=== PATIENT | female | born 1970 | race Caucasian/White ===

== ENCOUNTER 2017-02-17 05:19 | Inpatient (IN) | payer OTHER ==
[~2017-02-17] VITALS: Ht 172.7 cm; Wt 65.0 kg
[2017-02-17] VITALS (10 sets, daily range): BP systolic 81–110; BP diastolic 47–69; PULSE 58–71; RESP 16–23; TEMP 98.1–99; O2SAT 95–98
[~2017-02-17 05:19] MED LIST: DICL75 PO; KLON2TAB PO; PRED20 PO; SOMA350T PO; VENTAER INH
[2017-02-17] MEDS ORDERED: SODIUM CHLOR 0.9% 1000 ML INJ 1,000 ML IV ONE (05:30)
--- NOTE | 2017-02-17 05:34 | PD ---
HPI Chief Complaint: Abdominal Pain Time Seen by Provider: 05:26 Travel History International Travel<30 days: No Contact w/Intl Traveler<30days: No Traveled to known affect area: No History of Present Illness HPI The patient is a 47 year old female who presents to the [facility] emergency department with a history of abdominal pain in the midepigastric area and right flank pain that she reports as a burning sensation that began at approximately 11 AM yesterday. The patient reports that the pain comes and goes. She reports that this evening she's had nausea and vomiting 2 associated with it. She denies having any diarrhea. The patient reports that many years ago she did have a bowel obstruction and had a portion of her bowel removed. The patient's other abdominal surgeries include a hysterectomy, C- section, and appendectomy. The patient has had problems with abdominal pain in the past and been diagnosed with gastritis. She reports that her primary care physician is Dr. Angulo. The patient reports that she had 3 bowel movements yesterday that were reportedly normal. She denies having any blood in her stool or black or tarry stools. The patient denies any known fevers, cough, congestion, neck pain, chest pain, shortness of breath, urinary symptoms, or neurologic symptoms. The patient has a prior history of methamphetamine use. She had a relapse times one use 5 days ago. [facility] Past Medical History Narrative Medical The patient's past medical history is significant for COPD, gastritis, schizophreniacurrently off medications for the last 3 weeks, history of bowel obstruction with partial bowel resection, history of methamphetamine use, cervical cancer, hyperlipidemia, history of hepatitis C. Arthritis: Yes Asthma: Yes Blood Disorders: No Bipolar Disorder: Yes Anxiety: Yes Depression: Yes Cancer: Yes (CERVICAL 1993, "6 tumors in my lungs") Cardiovascular Problems: No High Cholesterol: Yes Chemotherapy: No COPD: Yes Cerebrovascular Accident: No Diminished Hearing: No Endocrine: No Gastrointestinal Disorders: Yes Genitourinary: Yes Headaches: No Hepatitis: Yes (HEPATITIS C) Immune Disorder: No Musculoskeletal: Yes (BULGING DISCS IN BACK) Neurologic: Yes Psychiatric: Yes Reproductive: Yes (CERVICAL CA IN 96, HYSTERECTOMY IN 96) Respiratory: Yes (copd) Migraines: No Radiation Therapy: No Schizophrenia: Yes Seizures: Yes (CHILD) Ulcer: Yes ?: Not Menopausal: Yes Past Surgical History Narrative Surgical The patient's past surgical history is significant for a hysterectomy, appendectomy, lumpectomy, abdominal surgery related to bowel obstruction. Abdominal Surgery: Yes (ABDOMINAL ADHESION REMOVAL 1994, 1995) AICD: No Appendectomy: Yes (1994) Arteriovenous Shunt: No Body Medical Devices: STOMACH STAPLING Cardiac Surgery: No Ear Surgery: No Endocrine Surgery: No Eye Surgery: No Genitourinary Surgery: No Gynecologic Surgery: Yes (PARTIAL HYSTERECTOMY 94) Hysterectomy: Yes (1994) Insulin Pump: No Joint Replacement: No Neurologic Surgery: No Oral Surgery: No Pacemaker: No Thoracic Surgery: No Other Surgery: Yes (LUMPECTOMY LEFT BREAST 2007 ) Social History Alcohol Use: No Tobacco Use: Yes (11/24 PPD) Substance Use: Yes (current methamphetamine abuse) Allergies-Medications (Allergen,Severity, Reaction): Coded Allergies: Albuterol (Verified Allergy, Severe, Hives, 02/17/17) Reported Meds & Prescriptions Reported Meds & Active Scripts Active No Active Prescriptions or Reported Medications Review of Systems General / Constitutional: No: Fever Eyes: No: Visual changes HENT: No: Headaches Cardiovascular: No: Chest Pain or Discomfort Respiratory: No: Shortness of Breath Gastrointestinal: Positive: Nausea, Vomiting, Abdominal Pain, No: Diarrhea, Hematemesis, Hematochezia, Constipation, Changes in Bowel Habits, Indigestion, Loss of Appetite Genitourinary: Positive: Flank Pain (right flank pain), No: Urgency, Frequency , Dysuria Musculoskeletal: No: Pain Skin: No Rash Neurologic: No: Weakness Psychiatric: No: Depression Endocrine: No: Polydipsia Hematologic/Lymphatic: No: Easy Bruising Physical Exam Narrative General: The patient is a well-developed well-nourished female, uncomfortable appearing on exam, rolling around in the bed, intermittently moaning/crying. Head and Neck exam: Head is normocephalic atraumatic. Eyes: EOMI, pupils are equal round and reactive to light. Nose: Midline septum with pink mucous membranes Mouth: Dentition unremarkable. Moist mucus membranes. Posterior oropharynx is not erythematous. No tonsillar hypertrophy. Uvula midline. Airway patent. Neck: No palpable lymphadenopathy. No nuchal rigidity. No thyromegaly. Cardiovascular: Regular rate and rhythm without murmurs, gallops, or rubs. Lungs: Clear to auscultation bilaterally. No wheezes, rhonchi, or rales. Abdomen: Soft, with reported tenderness on palpation of the midepigastric area, no other tenderness on palpation of the other quadrants of the abdomen. No guarding, rebound, or rigidity. Negative [place] sign. Normal bowel sounds are audible. Extremities: No clubbing, cyanosis, or edema. 2+ pulses in all 4 extremities. No calf tenderness on palpation. Back: No spinous process tenderness to palpation. Right-sided CVA tenderness on palpation. Neurologic Exam: Grossly nonfocal. Skin Exam: No rash noted. Intact skin that is warm and dry. Data Data Last Documented VS Vital Signs Date Time Temp Pulse Resp B/P Pulse Ox O2 Delivery O2 Flow Rate FiO2 02/17/17 08:00 63 18 90/54 98 Room Air 02/17/17 07:30 98.1 Orders Electrocardiogram (02/17/17 05:27) Complete Blood Count With Diff (02/17/17 05:27) Comprehensive Metabolic Panel (02/17/17 05:27) C-Reactive Protein (Crp) (02/17/17 05:27) Lipase (02/17/17 05:27) Urinalysis - C+S If Indicated (02/17/17 05:27) Beta Hcg (Quant/Titer) (02/17/17 05:27) Magnesium (Mg) (02/17/17 05:27) Chest, Single Ap (02/17/17 05:27) Ct Abd/Pel W Iv Contrast(Rout) (02/17/17 05:27) Iv Access Insert/Monitor (02/17/17 05:27) Ecg Monitoring (02/17/17 05:27) Oximetry (02/17/17 05:27) Ed Urine Pregnancytest Poc (02/17/17 05:27) Drug Screen, Random Urine (02/17/17 05:27) Alcohol (Ethanol) (02/17/17 05:27) Lactic Acid Sepsis Protocol (02/17/17 05:27) Sodium Chlor 0.9% 1000 Ml Inj (Ns 1000 M (02/17/17 05:30) Blood Culture (02/17/17 05:29) Ketorolac Inj (Toradol Inj) (02/17/17 06:00) Creatine Kinase (Cpk) (02/17/17 05:55) Ckmb (Isoenzyme) Profile (02/17/17 05:55) Troponin I (02/17/17 05:55) B-Type Natriuretic Peptide (02/17/17 05:55) Pantoprazole Inj (Protonix Inj) (02/17/17 06:45) Hydromorphone Pf Inj (Dilaudid Pf Inj) (02/17/17 08:00) Vy-Gastric Tube Insert/Mon (02/17/17 07:57) Admit Order (Ed Use Only) (02/17/17 ) Consult General Surgery (02/17/17 ) Labs Laboratory Tests Test 02/17/17 02/17/17 04:50 05:33 Urine Color YELLOW Urine Turbidity CLEAR Urine pH 6.5 Urine Specific [place] 1.022 Urine Protein TRACE mg/dL Urine Glucose (UA) NEG mg/dL Urine Ketones NEG mg/dL Urine Occult Blood NEG Urine Nitrite NEG Urine Bilirubin NEG Urine Urobilinogen LESS THAN 2.0 MG/DL Urine Leukocyte Esterase TRACE Urine RBC LESS THAN 1 /hpf Urine WBC 6 /hpf Urine Squamous Epithelial 2 /hpf Cells Urine Bacteria RARE /hpf Urine Mucus FEW /lpf Microscopic Urinalysis Comment CULT NOT INDICATED Urine Opiates Screen NEG Urine Barbiturates Screen NEG Urine Amphetamines Screen NEG Urine Benzodiazepines Screen NEG Urine Cocaine Screen NEG Urine Cannabinoids Screen NEG White Blood Count 8.0 TH/MM3 Red Blood Count 4.25 MIL/MM3 Hemoglobin 13.8 GM/DL Hematocrit 39.6 % Mean Corpuscular Volume 93.3 FL Mean Corpuscular Hemoglobin 32.4 PG Mean Corpuscular Hemoglobin 34.7 % Concent Red Cell Distribution Width 15.0 % Platelet Count 223 TH/MM3 Mean Platelet Volume 7.5 FL Neutrophils (%) (Auto) 47.5 % Lymphocytes (%) (Auto) 37.6 % Monocytes (%) (Auto) 12.2 % Eosinophils (%) (Auto) 2.4 % Basophils (%) (Auto) 0.3 % Neutrophils # (Auto) 3.8 TH/MM3 Lymphocytes # (Auto) 3.0 TH/MM3 Monocytes # (Auto) 1.0 TH/MM3 Eosinophils # (Auto) 0.2 TH/MM3 Basophils # (Auto) 0.0 TH/MM3 CBC Comment DIFF FINAL Differential Comment Sodium Level 139 MEQ/L Potassium Level 3.9 MEQ/L Chloride Level 105 MEQ/L Carbon Dioxide Level 26.3 MEQ/L Anion Gap 8 MEQ/L Blood Urea Nitrogen 14 MG/DL Creatinine 0.73 MG/DL Estimat Glomerular Filtration 85 ML/MIN Rate Random Glucose 105 MG/DL Lactic Acid Level 1.1 mmol/L Calcium Level 9.0 MG/DL Magnesium Level 2.2 MG/DL Total Bilirubin 0.3 MG/DL Aspartate Amino Transf 61 U/L (AST/SGOT) Alanine Aminotransferase 70 U/L (ALT/SGPT) Alkaline Phosphatase 89 U/L Total Creatine Kinase 57 U/L Troponin I LESS THAN 0.02 NG/ML C-Reactive Protein LESS THAN 0.29 MG/DL B-Type Natriuretic Peptide 19 PG/ML Total Protein 8.3 GM/DL Albumin 3.2 GM/DL Lipase 115 U/L Human Chorionic Gonadotropin, 3 MIU/ML Quant Ethyl Alcohol Level LESS THAN 3 MG/DL MDM Medical Decision Making Medical Screen Exam Complete: Yes Emergency Medical Condition: Yes Medical Record Reviewed: Yes Interpretation(s) Last Impressions Chest X-Ray 02/17/17526 Signed Impressions: Service Date/Time: Friday, February 17, 2017 06:02 - CONCLUSION: Minimal linear scarring or atelectasis in the lungs. No effusion or pneumothorax. Adan Matta MD Abdomen/Pelvis CT 02/17/17526 Signed Impressions: Service Date/Time: Friday, February 17, 2017 07:19 - CONCLUSION: 1. Multiple dilated loops of small bowel without focal caliber change or destructive mass/lesion. 2. Large spleno-renal shunt consistent with portal hypertension. The liver itself appears unremarkable. The splenic vein and portal vein are patent. Jey Edwards Jr., MD Differential Diagnosis Pyelonephritis, versus kidney stone, versus bowel obstruction, versus acute pancreatitis, versus biliary colic, versus acute cholecystitis Narrative Course During the course of the patients emergency department visit, the patients history, examination, and differential diagnosis were reviewed with the patient. The patient had IV access obtained and blood work sent for analysis. The patient was placed on a traffic monitor specialist with oximetry and blood pressure monitoring. An EKG was done on arrival. The patient's EKG shows a sinus bradycardia rate of 59, no acute ST segment elevation is noted. T waves are inverted in lead 3, aVF, V1, V2. This was compared to a prior EKG last done at this facility 2014. The T-wave inversions appear to be new, therefore cardiac enzymes were sent for analysis. The patient was provided normal saline 1 L IV fluid bolus. The patient was given 4 mg of Zofran prior to arrival by ambulance services. The patient was given Toradol 15 mg IV times one by me. The patient's blood sugar prior to arrival was reportedly 115. The patients laboratory studies were reviewed and remarkable for white count of 8, hemoglobin 13.8, platelets 223 with 12.3 monocytes, CMP is remarkable for a GFR of 85, AST 61, ALT 70 consistent with the patient's history of hepatitis C , C-reactive protein is less than 0.29, albumin 3.2, lipase 115, beta hCG is negative, alcohol level is less than 3. Lactic acid level is 1.1. Radiology studies were reviewed and remarkable for an area on chest x-ray of atelectasis, no other acute abnormality. The patient's case was checked out to the oncoming emergency physician to disposition based on the conclusion of the patient's workup, urinalysis, CT scan of the abdomen and pelvis. Diagnosis Primary Impression: Abdominal pain Qualified Code: R10.13 - Epigastric pain Additional Impression: Acute right flank pain Scripts No Active Prescriptions or Reported Meds Aislinn Gandhi MD Feb 17, 2017 05:34
[2017-02-17 06:00] LABS: AUTOMATED NEUTROPHIL # 3.8 TH/MM3 (1.8-7.7); BASOPHIL % 0.3 % (0.0-2.0); EOSINOPHIL # 0.2 TH/MM3 (0-0.4); EOSINOPHIL % 2.4 % (0.0-4.0); HEMATOCRIT 39.6 % (35.0-46.0); HEMO FLAGS DIFF FINAL; LYMPH % 37.6 % (9.0-44.0); MEAN CELL VOLUME 93.3 FL (80.0-100.0); MEAN CORPUSCULAR HEMOGLOBIN 32.4 PG (27.0-34.0); MEAN CORPUSCULAR HGB CONC 34.7 % (32.0-36.0); MONO % 12.2 % (0.0-8.0); NEUT % 47.5 % (16.0-70.0); PLATELET COUNT 223 TH/MM3 (150-450); RED BLOOD COUNT 4.25 MIL/MM3 (4.00-5.30)
[2017-02-17] MEDS ORDERED: KETOROLAC TROMETHAMINE 30 MG/ML (IVP) VIAL IV PUSH ONE (06:00)
[2017-02-17 06:25] LABS: ALT (GPT) 70 U/L (10-53); ANION GAP 8 MEQ/L (5-15); AST (GOT) 61 U/L (15-37); BICARBONATE 26.3 MEQ/L (21.0-32.0); BLOOD UREA NITROGEN 14 MG/DL (7-18); CHLORIDE 105 MEQ/L (98-107); GLOMERULAR FILTRATION RATE 85 ML/MIN (>89); MAGNESIUM 2.2 MG/DL (1.5-2.5); POTASSIUM 3.9 MEQ/L (3.5-5.1); SODIUM (NA) 139 MEQ/L (136-145)
[2017-02-17 06:28] LABS: ALKALINE PHOSPHATASE 89 U/L (45-117); BETA HCG QUANT 3 MIU/ML (0-5); TOTAL BILIRUBIN ADULT 0.3 MG/DL (0.2-1.0)
--- NOTE | 2017-02-17 06:40 | RADRPT ---
EXAM DATE/TIME: 02/17/2017 06:02 [facility] COMPARISON: CHEST SINGLE AP, April 28, 2015, 20:52. INDICATIONS : Short of breath. MEDICAL HISTORY : None. SURGICAL HISTORY : None. ENCOUNTER: Initial ACUITY: 1 day PAIN SCORE: 0/10 LOCATION: Bilateral chest FINDINGS: A single view of the chest demonstrates linear scarring or atelectasis at the lung bases. No focal in filtrate. No effusion. No pneumothorax. Heart size within normal limits. CONCLUSION: Minimal linear scarring or atelectasis in the lungs. No effusion or pneumothorax. Adan Matta MD on February 17, 2017 at 6:36 Board Certified Radiologist. This report was verified electronically.
[2017-02-17] MEDS ORDERED: PANTOPRAZOLE SODIUM 40 MG VIAL IV PUSH ONE (06:45)
[2017-02-17 06:54] LABS: CREATINE KINASE 57 U/L (26-192)
[2017-02-17] MEDS ORDERED: IOHEXOL 350 MG/ML 10 ML VIAL (for RAD DIAG) IV ONE (07:19)
--- NOTE | 2017-02-17 07:36 | PD ---
Data Data Last Documented VS Vital Signs Date Time Temp Pulse Resp B/P Pulse Ox O2 Delivery O2 Flow Rate FiO2 02/17/17 07:30 98.1 69 23 97/55 98 Room Air Orders Electrocardiogram (02/17/17 05:27) Complete Blood Count With Diff (02/17/17 05:27) Comprehensive Metabolic Panel (02/17/17 05:27) C-Reactive Protein (Crp) (02/17/17 05:27) Lipase (02/17/17 05:27) Urinalysis - C+S If Indicated (02/17/17 05:27) Beta Hcg (Quant/Titer) (02/17/17 05:27) Magnesium (Mg) (02/17/17 05:27) Chest, Single Ap (02/17/17 05:27) Ct Abd/Pel W Iv Contrast(Rout) (02/17/17 05:27) Iv Access Insert/Monitor (02/17/17 05:27) Ecg Monitoring (02/17/17 05:27) Oximetry (02/17/17 05:27) Ed Urine Pregnancytest Poc (02/17/17 05:27) Drug Screen, Random Urine (02/17/17 05:27) Alcohol (Ethanol) (02/17/17 05:27) Lactic Acid Sepsis Protocol (02/17/17 05:27) Sodium Chlor 0.9% 1000 Ml Inj (Ns 1000 M (02/17/17 05:30) Blood Culture (02/17/17 05:29) Ketorolac Inj (Toradol Inj) (02/17/17 06:00) Creatine Kinase (Cpk) (02/17/17 05:55) Ckmb (Isoenzyme) Profile (02/17/17 05:55) Troponin I (02/17/17 05:55) B-Type Natriuretic Peptide (02/17/17 05:55) Pantoprazole Inj (Protonix Inj) (02/17/17 06:45) Labs Laboratory Tests Test 02/17/17 02/17/17 04:50 05:33 Urine Color YELLOW Urine Turbidity CLEAR Urine pH 6.5 Urine Specific [place] 1.022 Urine Protein TRACE mg/dL Urine Glucose (UA) NEG mg/dL Urine Ketones NEG mg/dL Urine Occult Blood NEG Urine Nitrite NEG Urine Bilirubin NEG Urine Urobilinogen LESS THAN 2.0 MG/DL Urine Leukocyte Esterase TRACE Urine RBC LESS THAN 1 /hpf Urine WBC 6 /hpf Urine Squamous Epithelial 2 /hpf Cells Urine Bacteria RARE /hpf Urine Mucus FEW /lpf Microscopic Urinalysis Comment CULT NOT INDICATED White Blood Count 8.0 TH/MM3 Red Blood Count 4.25 MIL/MM3 Hemoglobin 13.8 GM/DL Hematocrit 39.6 % Mean Corpuscular Volume 93.3 FL Mean Corpuscular Hemoglobin 32.4 PG Mean Corpuscular Hemoglobin 34.7 % Concent Red Cell Distribution Width 15.0 % Platelet Count 223 TH/MM3 Mean Platelet Volume 7.5 FL Neutrophils (%) (Auto) 47.5 % Lymphocytes (%) (Auto) 37.6 % Monocytes (%) (Auto) 12.2 % Eosinophils (%) (Auto) 2.4 % Basophils (%) (Auto) 0.3 % Neutrophils # (Auto) 3.8 TH/MM3 Lymphocytes # (Auto) 3.0 TH/MM3 Monocytes # (Auto) 1.0 TH/MM3 Eosinophils # (Auto) 0.2 TH/MM3 Basophils # (Auto) 0.0 TH/MM3 CBC Comment DIFF FINAL Differential Comment Sodium Level 139 MEQ/L Potassium Level 3.9 MEQ/L Chloride Level 105 MEQ/L Carbon Dioxide Level 26.3 MEQ/L Anion Gap 8 MEQ/L Blood Urea Nitrogen 14 MG/DL Creatinine 0.73 MG/DL Estimat Glomerular Filtration 85 ML/MIN Rate Random Glucose 105 MG/DL Lactic Acid Level 1.1 mmol/L Calcium Level 9.0 MG/DL Magnesium Level 2.2 MG/DL Total Bilirubin 0.3 MG/DL Aspartate Amino Transf 61 U/L (AST/SGOT) Alanine Aminotransferase 70 U/L (ALT/SGPT) Alkaline Phosphatase 89 U/L Total Creatine Kinase 57 U/L Troponin I LESS THAN 0.02 NG/ML C-Reactive Protein LESS THAN 0.29 MG/DL B-Type Natriuretic Peptide 19 PG/ML Total Protein 8.3 GM/DL Albumin 3.2 GM/DL Lipase 115 U/L Human Chorionic Gonadotropin, 3 MIU/ML Quant Ethyl Alcohol Level LESS THAN 3 MG/DL MDM Supervised Visit with NIKITA: No Narrative Course Assumed care of patient from Dr. Gandhi. So 47-year-old woman with a history of COPD, gastritis, schizophrenia, as well as IV drug use, and history of multiple abdominal surgeries including bowel obstruction with partial bowel resection, hysterectomy, , and appendectomy. She presented to the ED with 1 day of epigastric and right flank pain, burning in nature, coming and going. Dr. Gandhi described her as looking uncomfortable and somewhat ill on initial presentation, but significantly improved after interventions the ED. Lab work reveals normal white count, wide gamma gap consistent with hepatitis C, normal cardiac enzymes, negative lipase, negative hCG. Patient had chest x-ray done was unremarkable. She had some new T-wave inversions on her EKG and cardiac enzymes were performed and were negative. CT shows multiple dilated loops of small bowel without focal caliber change or distractive mass lesion. We'll plan on admission for observation for ileus versus bowel obstruction. Diagnosis Primary Impression: Abdominal pain Qualified Code: R10.13 - Epigastric pain Additional Impression: Acute right flank pain Scripts No Active Prescriptions or Reported Meds Sam Singh MD Feb 17, 2017 07:36
[2017-02-17 07:38] LABS: BACTERIA, URINE RARE /hpf; BLOOD, URINE NEG (NEG); COMMENT (UR) CULT NOT INDICATED; CULTURE IF INDICATED CULT NOT INDICATED; GLUCOSE,URINE NEG (NEG); KETONE, URINE NEG (NEG); MUCUS URINE FEW /lpf (OCC); NITRITE,URINE NEG (NEG); PH, URINE 6.5 (5.0-8.5); SQUAMOUS EPITHELIAL CELL URINE 2 /hpf (0-5); URINE COLOR YELLOW (YELLW/STRAW)
--- NOTE | 2017-02-17 07:49 | RADRPT ---
EXAM DATE/TIME: 02/17/2017 07:19 [facility] COMPARISON: No previous studies available for comparison. INDICATIONS : Right side abdominal pain and vomiting. IV CONTRAST: 95 cc Omnipaque 350 (iohexol) IV ORAL CONTRAST: No oral contrast ingested. RADIATION DOSE: 5.05 CTDIvol (mGy) MEDICAL HISTORY : Chronic obstructive pulmonary disease. Cervical cancer SURGICAL HISTORY : Appendectomy. Hysterectomy.Colon resection for obstruction ENCOUNTER: Initial ACUITY: 2 days PAIN SCALE: 5/10 LOCATION: Right upper quadrant TECHNIQUE: Volumetric scanning of the abdomen and pelvis was performed. Using automated exposure control and ad justment of the mA and/or kV according to patient size, radiation dose was kept as low as reasonably achievable to obtain optimal diagnostic quality images. FINDINGS: LOWER LUNGS: The visualized lower lungs are clear. LIVER: Homogeneous density without lesion. There is no dilation of the biliary tree. No calcified gallston es. SPLEEN: Normal size without lesion. A large spleno-renal shunt is observed. PANCREAS: Within normal limits. KIDNEYS: Normal in size and shape. There is no mass, stone or hydronephrosis. ADRENAL GLANDS: Within normal limits. VASCULAR: There is no aortic aneurysm. BOWEL/MESENTERY: Multiple dilated loops of gas filled small bowel are seen throughout the lower abdomen and pelvis. He slowly taper to a normal caliber. No obstructing mass or lesion is observed. No free air or free flu id. No appreciable inflammatory process. The stomach and colon are unremarkable. ABDOMINAL WALL: Within normal limits. RETROPERITONEUM: There is no lymphadenopathy. BLADDER: No wall thickening or mass. REPRODUCTIVE: Prior hysterectomy. No mass or fluid collections. INGUINAL: There is no lymphadenopathy or hernia. MUSCULOSKELETAL: Within normal limits for patient age. CONCLUSION: 1. Multiple dilated loops of small bowel without focal caliber change or destructive mass/lesion. 2. Large spleno-renal shunt consistent with portal hypertension. The liver itself appears unremarkabl e. The splenic vein and portal vein are patent. Jey Edwards Jr., MD on February 17, 2017 at 7:41 Board Certified Radiologist. This report was verified electronically.
[2017-02-17] MEDS ORDERED: HYDROmorphone HCL PF 1 MG/ML VIAL IVS ONE (08:00)
[2017-02-17] MEDS ORDERED: SENNOSIDES 8.6 MG TAB PO PRN (08:45)
[2017-02-17] MEDS ORDERED: ACETAMINOPHEN 325 MG TAB PO PRN ×2 (08:45)
[2017-02-17] MEDS ORDERED: NALOXONE HCL 0.4 MG/ML AMP IV PRN (08:45)
[2017-02-17] MEDS: MORPHINE SULFATE 4 MG/ML INJ IV PRN ×2 (09:47→12:01)
[2017-02-17] MEDS: DEXT 5%-NACL 0.9% 1000 ML INJ 1,000 ML IV SCH ×2 (09:48→18:37)
[2017-02-17] MEDS: SODIUM CHLORIDE 0.9% FLUSH 10 ML FLUSH IV FLUSH SCH ×2 (09:51→18:38)
[2017-02-17] MEDS: DOCUSATE SODIUM 100 MG CAP PO SCH ×2 (10:04→22:39)
--- NOTE | 2017-02-17 10:11 | MB ---
cc: GEGE BEDOLLA DATE OF CONSULTATION 02/17/2017 REASON FOR CONSULTATION Questionable small bowel obstruction. HISTORY This is a 47-year-old female who came into the emergency room earlier this morning with complaints of abdominal pain and an episode of vomiting. She had some bowel movements yesterday as well. She came into the emergency room. CT was done which showed a questionable small bowel obstruction because she has some dilated small bowel. She had a NG tube which had some bloody discharge, surgery was consulted. PAST MEDICAL/SURGICAL HISTORY Significant for: 1. Hepatitis C 2. Schizophrenia 3. Cirrhosis 4. Liver failure 5. She has had a history of drug abuse. 6. Hysterectomy and a small bowel obstruction after that requiring a resection. 7. She has COPD in addition. 8. She has some chronic back. 9. No cardiac or problems. 10. She apparently has some "tumors on her lung". 11. Other surgical history includes a . PHYSICAL EXAM On physical exam, she is a thin lady who is crying and she just had the NG tube placed. She had some bloody drainage in the NG tube. She says she felt a little better after coming to the hospital, but then after the NG tube, she felt a choking sensation. NECK: Supple. CHEST: Fairly clear. ABDOMEN: Slightly sore were surgical scar. She has tattoos. There are bowel sounds. There is no rebound or guarding. No masses are appreciated. EXTREMITIES: Moves all extremities well. No clubbing, cyanosis or edema. Again she has numerous tattoos. LABORATORY DATA She had a white count of 8, H&H of 13 and 39. Chemistry is essentially normal. LFTs slightly elevated AST and ALT. Albumin is 3.2. Beta hCG 3. Toxicology was negative for alcohol. Urinalysis was clear. RADIOLOGIC IMAGING A chest x-ray showed some scarring and atelectasis. CT of the abdomen showed a splenorenal shunt consistent with portal hypertension, some dilated loops of bowel with no mass. ASSESSMENT A 47-year-old female with some abdominal pain, history of a small bowel obstruction the past, history of numerous surgeries in the past, Hepatitis C Schizophrenia Cirrhosis, Liver failure and Portal Hypertension She has had a history of drug abuse. Possible upper gi bleed vs varices PLAN At this time, conservative management. She states she had three bowel movements yesterday. We will repeat the KUB tomorrow. If this continued to be a question, I will get a small bowel follow-through series. Obviously, this is a high-risk patient with her multiple medical issues. We will follow along with your this admission. MD KOTA Bond/QUIRINO /9:57 AM /10:06 AM MTDOpal
[2017-02-17] MEDS: METOCLOPRAMIDE HCL 10 MG/2 ML VIAL IM SCH ×2 (14:08→22:40)
[2017-02-17] MEDS ORDERED: HYDROmorphone HCL PF 1 MG/ML VIAL IV PUSH ONE (15:00)
--- NOTE | 2017-02-17 15:19 | HHI.HP ---
[facility] Service [facility] Primary Care Physician John Angulo DO Admission Diagnosis abdominal pain, ileus versus bowel obstruction Diagnoses: Chief Complaint: Abdominal pain Travel History International Travel<30 Days: No Contact w/Intl Traveler <30 Da: No Traveled to Known Affected Are: No History of Present Illness The patient is a 47-year-old female with a past medical history of bowel obstruction requiring surgical resection who is presenting to the hospital with significant abdominal pain as well as nausea and vomiting. The patient says that about 2 days ago she woke up feeling significant abdominal pain. She says the pain is located above her bellybutton and does not radiate anywhere. She describes the pain as a stabbing sensation and she rates the pain as a 10 out of 10 in severity at its worst. The patient says that the pain comes in spasms about every 5 minutes. She says it continues all day long. She also endorses pain in her right flank area. She is not sure if the 2 pains are connected. She also has come down with nausea and vomiting. She said she vomited earlier but has not vomited since being in the hospital. She does not think that the NG tube is helping. She says she would like surgery to fix the problem. She says she has not noticed any fevers but she has felt warm. She says that she has had 3 normal bowel movements yesterday. She has not had any bowel movements today and has not been passing any gas. Review of Systems Except as stated in HPI: all other systems reviewed are Neg Past Family Social History Past Medical History Hepatitis C Schizophrenia Cirrhosis Hysterectomy and a small bowel obstruction after that requiring a resection COPD Cervical cancer Endometriosis Allergies: Coded Allergies: Albuterol (Verified Allergy, Severe, Hives, 02/17/17) Active Ordered Medications Current Medications Medications (Trade) Dose Ordered Sig/Jerrell Route Start Time Stop Time Status Last Admin (NS Flush) 2 ml UNSCH PRN IV FLUSH 02/17/17 08:45 (NS Flush) 2 ml BID IV FLUSH 02/17/17 09:00 02/17/17 09:51 (Tylenol) 650 mg Q4H PRN PO 02/17/17 08:45 (Zofran Inj) 4 mg Q6H PRN IVP 02/17/17 08:45 (Colace) 100 mg Q12HR PO 02/17/17 10:00 02/17/17 10:04 (Senokot) 17.2 mg Q12H PRN PO 02/17/17 08:45 (Tylenol) 650 mg Q6H PRN PO 02/17/17 08:45 (Roxicodone) 10 mg Q4H PRN PO 02/17/17 08:45 (Roxicodone) 5 mg Q4H PRN PO 02/17/17 08:45 02/17/17 14:09 Naloxone HCl 0.4 mg 0.4 mg UNSCH PRN IV 02/17/17 08:45 (D5W-NS 1000 ml Inj) 1,000 ml @ 100 mls/hr Q10H IV 02/17/17 08:45 02/17/17 09:48 (Reglan Inj) 10 mg Q8HR IM 02/17/17 14:00 02/17/17 14:08 (Protonix Inj) 40 mg Q12H IV PUSH 02/17/17 18:00 (Flu (Quadrivalent) Vaccine Inj) 0.5 ml ONCE ONCE IM 02/18/17 10:00 02/18/17 10:01 (Pneumovax-23 Inj) 25 mcg ONCE ONCE IM 02/18/17 10:00 02/18/17 10:01 (Dilaudid Pf Inj) 1 mg Q3HR PRN IV PUSH 02/17/17 15:00 UNV (Dilaudid Pf Inj) 1 mg ONCE ONCE IV PUSH 02/17/17 15:00 02/17/17 15:01 UNV (Toradol Inj) 15 mg Q6HR IV PUSH 02/17/17 15:00 02/19/17 06:01 UNV Family History Liver and heart problems Social History The pt smokes a pack every two days. She uses meth. She denies alcohol use. Physical Exam Vital Signs Vital Signs Date Time Temp Pulse Resp B/P Pulse Ox O2 Delivery O2 Flow Rate FiO2 02/17/17 13:15 69 16 100/62 98 02/17/17 09:54 101/55 02/17/17 09:06 58 20 100/53 97 02/17/17 08:00 63 18 90/54 98 Room Air 02/17/17 07:30 98.1 69 23 97/55 98 Room Air 02/17/17 05:31 95 Room Air 02/17/17 05:21 98.1 71 18 110/57 97 Physical Exam GENERAL: The patient appears uncomfortable and in pain. SKIN: No rashes, ecchymoses or lesions. Cool and dry. HEAD: Atraumatic. Normocephalic. No temporal or scalp tenderness. EYES: Pupils equal round and reactive. Extraocular motions intact. No scleral icterus. No injection or drainage. ENT: Nose without bleeding, purulent drainage or septal hematoma. Throat without erythema, tonsillar hypertrophy or exudate. Uvula midline. Airway patent. NG tube in place. NECK: Trachea midline. No JVD or lymphadenopathy. Supple, nontender, no meningeal signs. CARDIOVASCULAR: Regular rate and rhythm without murmurs, gallops, or rubs. RESPIRATORY: Clear to auscultation. Breath sounds equal bilaterally. No wheezes , rales, or rhonchi. GASTROINTESTINAL: Abdomen distended but soft. Generalized tenderness to palpation. MUSCULOSKELETAL: Extremities without clubbing, cyanosis, or edema. No joint tenderness, effusion, or edema noted. NEUROLOGICAL: Awake and alert. Cranial nerves II through XII intact. Motor and sensory grossly within normal limits. Five out of 5 muscle strength in all muscle groups. Normal speech. PSYCH: Anxious. Laboratory Laboratory Tests Test 02/17/17 02/17/17 04:50 05:33 Urine Color YELLOW Urine Turbidity CLEAR Urine pH 6.5 Urine Specific Sullivan 1.022 Urine Protein TRACE Urine Glucose (UA) NEG Urine Ketones NEG Urine Occult Blood NEG Urine Nitrite NEG Urine Bilirubin NEG Urine Urobilinogen LESS THAN 2.0 Urine Leukocyte Esterase TRACE Urine RBC LESS THAN 1 Urine WBC 6 Urine Squamous Epithelial 2 Cells Urine Bacteria RARE Urine Mucus FEW Microscopic Urinalysis Comment CULT NOT INDICATED White Blood Count 8.0 Red Blood Count 4.25 Hemoglobin 13.8 Hematocrit 39.6 Mean Corpuscular Volume 93.3 Mean Corpuscular Hemoglobin 32.4 Mean Corpuscular Hemoglobin 34.7 Concent Red Cell Distribution Width 15.0 Platelet Count 223 Mean Platelet Volume 7.5 Neutrophils (%) (Auto) 47.5 Lymphocytes (%) (Auto) 37.6 Monocytes (%) (Auto) 12.2 Eosinophils (%) (Auto) 2.4 Basophils (%) (Auto) 0.3 Neutrophils # (Auto) 3.8 Lymphocytes # (Auto) 3.0 Monocytes # (Auto) 1.0 Eosinophils # (Auto) 0.2 Basophils # (Auto) 0.0 CBC Comment DIFF FINAL Differential Comment Sodium Level 139 Potassium Level 3.9 Chloride Level 105 Carbon Dioxide Level 26.3 Anion Gap 8 Blood Urea Nitrogen 14 Creatinine 0.73 Estimat Glomerular Filtration 85 Rate Random Glucose 105 Lactic Acid Level 1.1 Calcium Level 9.0 Magnesium Level 2.2 Total Bilirubin 0.3 Aspartate Amino Transf 61 (AST/SGOT) Alanine Aminotransferase 70 (ALT/SGPT) Alkaline Phosphatase 89 Total Creatine Kinase 57 Troponin I LESS THAN 0.02 C-Reactive Protein LESS THAN 0.29 B-Type Natriuretic Peptide 19 Total Protein 8.3 Albumin 3.2 Lipase 115 Human Chorionic Gonadotropin, 3 Quant Ethyl Alcohol Level LESS THAN 3 Date/Time Procedure Status Source Growth 02/17/17 05:35 Aerobic Blood Culture Received Blood Peripheral Pending 02/17/17 05:35 Anaerobic Blood Culture Received Blood Peripheral Pending Result Diagram: 02/17/1753202/17/17532 Imaging Last Impressions Chest X-Ray 02/17/17526 Signed Impressions: Service Date/Time: Friday, February 17, 2017 06:02 - CONCLUSION: Minimal linear scarring or atelectasis in the lungs. No effusion or pneumothorax. Adan Matta MD Abdomen/Pelvis CT 02/17/17526 Signed Impressions: Service Date/Time: Friday, February 17, 2017 07:19 - CONCLUSION: 1. Multiple dilated loops of small bowel without focal caliber change or destructive mass/lesion. 2. Large spleno-renal shunt consistent with portal hypertension. The liver itself appears unremarkable. The splenic vein and portal vein are patent. Jey Edwards Jr., MD Assessment and Plan Assessment and Plan Abdominal pain/ N/V The patient has significant pain as well as nausea and vomiting. She has a history of bowel obstruction requiring surgery. LFTs minimally elevated and lipase unremarkable. CT of the abdomen showed: Multiple dilated loops of small bowel without focal caliber change or destructive mass/lesion; Large spleno- renal shunt consistent with portal hypertension. Appreciate surgical consultation. - Continue conservative management with NG tube, pain meds and antiemetics as needed. - Keep the patient nothing by mouth with IV fluids. - Follow up with general surgery. KUB in the a.m. Hypotension Likely secondary to decreased by mouth intake and vomiting. - IVFs. Substance abuse The patient uses methamphetamine as well as smokes a pack of cigarettes every 2 days. - Cessation instruction. - Nicotine patch. Elevated LFTs The patient has a history of cirrhosis. Liver unremarkable on CT scan. - Continue to trend LFTs. PPx: SCDs. Discussed Condition With Pt, Dr. Singh. Physician Certification 2 Midnight Certification Type: Admission for Inpatient Services Order for Inpatient Services The services are ordered in accordance with Medicare regulations or non- Medicare payer requirements, as applicable. In the case of services not specified as inpatient-only, they are appropriately provided as inpatient services in accordance with the 2-midnight benchmark. Estimated LOS (days): 2 days is the estimated time the patient will need to remain in the hospital, assuming treatment plan goals are met and no additional complications. Post-Hospital Plan: Home Igor Tate DO Feb 17, 2017 15:19
[2017-02-17] MEDS: KETOROLAC TROMETHAMINE 30 MG/ML (IVP) VIAL IV PUSH SCH ×2 (15:45→18:38)
[2017-02-17] MEDS: REMOVE OLD PATCH T-DERMAL SCH ×2 (17:32→22:37)
[2017-02-17] MEDS: NICOTINE 14 MG/24 HR PATCH T-DERMAL SCH (17:32)
[2017-02-17] MEDS ORDERED: HYDROmorphone HCL PF 1 MG/ML VIAL IV PUSH PRN (18:30)
[2017-02-17] MEDS: PANTOPRAZOLE SODIUM 40 MG VIAL IV PUSH SCH (18:38)
[2017-02-17] MEDS: ONDANSETRON HCL 4 MG/2 ML VIAL IVP PRN (22:41)
[2017-02-18] VITALS (8 sets, daily range): BP systolic 75–104; BP diastolic 43–57; PULSE 60–76; RESP 16–18; TEMP 96.6–99; O2SAT 90–98
[2017-02-18] MEDS ORDERED: SODIUM CHLORID 0.9% 500 ML INJ 500 ML IV ONE
[2017-02-18] MEDS: DEXT 5%-NACL 0.9% 1000 ML INJ 1,000 ML IV SCH ×4 (00:14→16:10)
[2017-02-18] MEDS: KETOROLAC TROMETHAMINE 30 MG/ML (IVP) VIAL IV PUSH SCH ×4 (00:20→17:43)
[2017-02-18 01:59] LABS: AMPHETAMINE, URINE NEG (NEG); BARBITURATES, URINE NEG (NEG); COCAINE, URINE NEG (NEG)
[2017-02-18 05:24] LABS: AUTOMATED NEUTROPHIL # 2.1 TH/MM3 (1.8-7.7); BASOPHIL % 0.4 % (0.0-2.0); EOSINOPHIL # 0.2 TH/MM3 (0-0.4); EOSINOPHIL % 3.1 % (0.0-4.0); HEMATOCRIT 33.3 % (35.0-46.0); LYMPH % 47.8 % (9.0-44.0); LYMPHOCYTE # 2.7 TH/MM3 (1.0-4.8); MEAN CELL VOLUME 93.5 FL (80.0-100.0); MEAN CORPUSCULAR HEMOGLOBIN 32.2 PG (27.0-34.0); MEAN CORPUSCULAR HGB CONC 34.4 % (32.0-36.0); MONO % 11.8 % (0.0-8.0); NEUT % 36.9 % (16.0-70.0); PLATELET COUNT 166 TH/MM3 (150-450); RED BLOOD COUNT 3.57 MIL/MM3 (4.00-5.30); RED CELL DISTRIBUTION WIDTH 15.1 % (11.6-17.2); WHITE BLOOD COUNT 5.6 TH/MM3 (4.0-11.0)
[2017-02-18 05:35] LABS: ALKALINE PHOSPHATASE 72 U/L (45-117); ALT (GPT) 60 U/L (10-53); ANION GAP 5 MEQ/L (5-15); AST (GOT) 57 U/L (15-37); BICARBONATE 26.7 MEQ/L (21.0-32.0); BLOOD UREA NITROGEN 16 MG/DL (7-18); CHLORIDE 110 MEQ/L (98-107); GLOMERULAR FILTRATION RATE 84 ML/MIN (>89); POTASSIUM 4.6 MEQ/L (3.5-5.1); SODIUM (NA) 142 MEQ/L (136-145); TOTAL BILIRUBIN ADULT 0.4 MG/DL (0.2-1.0)
[2017-02-18] MEDS: METOCLOPRAMIDE HCL 10 MG/2 ML VIAL IM SCH ×3 (06:02→21:16)
[2017-02-18] MEDS: PANTOPRAZOLE SODIUM 40 MG VIAL IV PUSH SCH ×2 (06:03→17:43)
[2017-02-18 06:04] LABS: HEMO FLAGS AUTO DIFF
[2017-02-18 07:02] LABS: EOSINOPHILS 2 % (0-4); NEUTROPHIL # MANUAL DIFF 2.2 TH/MM3 (1.8-7.7); POLYS (SEG NEUTROPHILS) 39 % (16-70); WBC DIFF SAMPLE 100
[2017-02-18 07:03] LABS: PLATELET ESTIMATE SMEAR LOW (NORMAL); PLATELET MORPHOLOGY NORMAL (NORMAL); SCAN/DIFF FINAL DIFF MANUAL
--- NOTE | 2017-02-18 07:41 | RADRPT ---
EXAM DATE/TIME: 02/18/2017 06:41 [place] COMPARISON: CT ABDOMEN & PELVIS W CONTRAST, February 17, 2017, 7:19. INDICATIONS : Abdominal pain. MEDICAL HISTORY : Chronic obstructive pulmonary disease. Cervical cancer. SURGICAL HISTORY : Appendectomy. Hysterectomy. Colon resection. ENCOUNTER: Initial ACUITY: 3 days PAIN SCORE: 6/10 LOCATION: epigastric FINDINGS: Supine view of the abdomen was performed. Nasogastric tube with tip in distal stomach. Surgical clips along the lower abdomen. Copious amount of stool seen. The abdominal bowel gas pattern is normal. N o abnormal masses, calcifications, or organomegaly is seen. The osseous structures are unremarkable. CONCLUSION: 1. Constipation. 2. No dilated bowel loops. Ángel Najera MD on February 18, 2017 at 7:38 Board Certified Radiologist. This report was verified electronically.
--- NOTE | 2017-02-18 08:07 | EKG ---
Date Performed: 02/17/2017 Time Performed: 05:42:47 PTAGE: 47 years EKG: SINUS BRADYCARDIA VOLTAGE CRITERIA FOR LVH INFERIOR MYOCARDIAL INFARCTION ABNORMAL ECG Comp ared to PREVIOUS TRACING , the sinus tachycardia has resolved. The lateral ST segment depression has resolved. PREVIOUS TRACIN04/28/2015 19.52 DOCTOR: Lori Richardson Interpretating Date/Time 02/18/2017 08:05:12
[2017-02-18] MEDS: SODIUM CHLORIDE 0.9% FLUSH 10 ML FLUSH IV FLUSH SCH ×2 (08:22→21:00)
[2017-02-18] MEDS: NICOTINE 14 MG/24 HR PATCH T-DERMAL SCH (08:23)
[2017-02-18] MEDS: DOCUSATE SODIUM 100 MG CAP PO SCH ×2 (08:23→21:16)
[2017-02-18] MEDS: HYDROmorphone HCL PF 1 MG/ML VIAL IV PUSH PRN ×3 (09:24→21:17)
[2017-02-18] MEDS: SODIUM CHLORIDE 0.9% FLUSH 10 ML FLUSH IV FLUSH PRN ×2 (09:24→12:16)
[2017-02-18] MEDS ORDERED: INFLUENZA VIRUS VACCINE (QUADRIVALENT) 0.5 ML SYR IM ONE (10:00)
[2017-02-18] MEDS ORDERED: PNEUMOCOCCAL POLYVALENT INJ 25 MCG/0.5 ML SYR IM ONE (10:00)
--- NOTE | 2017-02-18 10:00 | HHI.PR ---
Subjective Remarks The patient says she feels a lot better. She says that when she walks around her pain gets worse. She would like to get the NG tube out. She would like to start eating something. She says she saw the surgeons earlier and they mention that they would start enemas soon. Objective Vitals Vital Signs Date Time Temp Pulse Resp B/P Pulse Ox O2 Delivery O2 Flow Rate FiO2 02/18/17 08:00 98.8 65 16 91/53 92 02/18/17 07:02 18 02/18/17 06:03 18 02/18/17 04:15 90/56 02/18/17 04:00 97.8 60 18 75/43 97 02/18/17 00:00 98.8 65 18 92/55 98 02/17/17 23:05 82/56 02/17/17 20:00 99.0 60 18 81/47 97 02/17/17 15:21 110/69 02/17/17 13:15 69 16 100/62 98 02/17/17 09:54 101/55 I/O 02/17/17 02/17/17 02/17/17 02/18/17 02/18/17 02/18/17 07:00 15:00 23:00 07:00 15:00 23:00 Intake Total 1027 ml 100 ml Output Total 100 ml 1000 ml Balance 927 ml -900 ml Intake Oral 0 ml 0 ml IV Total 1027 ml 100 ml Output Urine Total 800 ml Gastric Drainage Total 100 ml 200 ml # Voids 1 # Bowel Movements 0 0 Result Diagram: 02/18/17 0347 02/18/17346 Imaging Last Impressions Abdomen X-Ray 02/18/17 0000 Signed Impressions: Service Date/Time: Saturday, February 18, 2017 06:41 - CONCLUSION: 1. Constipation. 2. No dilated bowel loops. Ángel Najera MD Chest X-Ray 02/17/17526 Signed Impressions: Service Date/Time: Friday, February 17, 2017 06:02 - CONCLUSION: Minimal linear scarring or atelectasis in the lungs. No effusion or pneumothorax. Adan Matta MD Abdomen/Pelvis CT 02/17/17526 Signed Impressions: Service Date/Time: Friday, February 17, 2017 07:19 - CONCLUSION: 1. Multiple dilated loops of small bowel without focal caliber change or destructive mass/lesion. 2. Large spleno-renal shunt consistent with portal hypertension. The liver itself appears unremarkable. The splenic vein and portal vein are patent. Jey Edwards Jr., MD Objective Remarks GENERAL: The patient appears comfortable. SKIN: No rashes, ecchymoses or lesions. Cool and dry. HEAD: Atraumatic. Normocephalic. No temporal or scalp tenderness. EYES: Pupils equal round and reactive. Extraocular motions intact. No scleral icterus. No injection or drainage. ENT: Nose without bleeding, purulent drainage or septal hematoma. Throat without erythema, tonsillar hypertrophy or exudate. Uvula midline. Airway patent. NG tube in place. NECK: Trachea midline. No JVD or lymphadenopathy. Supple, nontender, no meningeal signs. CARDIOVASCULAR: Regular rate and rhythm without murmurs, gallops, or rubs. RESPIRATORY: Clear to auscultation. Breath sounds equal bilaterally. No wheezes , rales, or rhonchi. GASTROINTESTINAL: Abdomen distended but soft. Minimally tender to palpation. MUSCULOSKELETAL: Extremities without clubbing, cyanosis, or edema. No joint tenderness, effusion, or edema noted. NEUROLOGICAL: Awake and alert. Cranial nerves II through XII intact. Motor and sensory grossly within normal limits. Five out of 5 muscle strength in all muscle groups. Normal speech. PSYCH: Mood and affect appropriate. Medications and IVs Current Medications Medications (Trade) Dose Ordered Sig/Jerrell Route Start Time Stop Time Status Last Admin (NS Flush) 2 ml UNSCH PRN IV FLUSH 02/17/17 08:45 02/18/17 09:24 (NS Flush) 2 ml BID IV FLUSH 02/17/17 09:00 02/17/17 18:38 (Tylenol) 650 mg Q4H PRN PO 02/17/17 08:45 (Zofran Inj) 4 mg Q6H PRN IVP 02/17/17 08:45 02/17/17 22:41 (Colace) 100 mg Q12HR PO 02/17/17 10:00 02/17/17 22:39 (Senokot) 17.2 mg Q12H PRN PO 02/17/17 08:45 (Tylenol) 650 mg Q6H PRN PO 02/17/17 08:45 (Roxicodone) 10 mg Q4H PRN PO 02/17/17 08:45 (Roxicodone) 5 mg Q4H PRN PO 02/17/17 08:45 02/18/17 04:28 Naloxone HCl 0.4 mg 0.4 mg UNSCH PRN IV 02/17/17 08:45 (D5W-NS 1000 ml Inj) 1,000 ml @ 150 mls/hr Q6H40M IV 02/17/17 08:45 02/18/17 06:03 (Reglan Inj) 10 mg Q8HR IM 02/17/17 14:00 02/18/17 06:02 (Protonix Inj) 40 mg Q12H IV PUSH 02/17/17 18:00 02/18/17 06:03 (Flu (Quadrivalent) Vaccine Inj) 0.5 ml ONCE ONCE IM 02/18/17 10:00 02/18/17 10:01 (Pneumovax-23 Inj) 25 mcg ONCE ONCE IM 02/18/17 10:00 02/18/17 10:01 02/18/17 09:27 (Toradol Inj) 15 mg Q6HR IV PUSH 02/17/17 15:00 02/19/17 06:01 02/18/17 06:02 (Habitrol 14 Mg Patch.24 Hr) 1 patch DAILY T-DERMAL 02/17/17 16:00 02/17/17 17:32 Miscellaneous Information 1 DAILY T-DERMAL 02/17/17 16:00 02/17/17 22:37 (Dilaudid Pf Inj) 0.5 mg Q3HR PRN IV PUSH 02/18/17 08:45 02/18/17 09:24 A/P Assessment and Plan Abdominal pain/ N/V The patient has significant pain as well as nausea and vomiting. She has a history of bowel obstruction requiring surgery. LFTs minimally elevated and lipase unremarkable. CT of the abdomen showed: Multiple dilated loops of small bowel without focal caliber change or destructive mass/lesion; Large spleno- renal shunt consistent with portal hypertension. Appreciate surgical consultation. KUB 02/18 with constipation, no dilated bowel loops. Symptoms have improved greatly. - Continue conservative management with NG tube, pain meds and antiemetics as needed. - Keep the patient nothing by mouth with IV fluids. - Follow up with general surgery in regards to starting enemas and d/c NGT. - PPI. Hypotension Likely secondary to decreased by mouth intake and vomiting. - IVFs. - careful use of pain meds. Substance abuse The patient uses methamphetamine as well as smokes a pack of cigarettes every 2 days. - Cessation instruction. - Nicotine patch offered. Elevated LFTs The patient has a history of cirrhosis. Liver unremarkable on CT scan. - Continue to trend LFTs as needed. Stable. PPx: SCDs. Discharge Planning Awaiting clinical improvement. Igor Tate DO Feb 18, 2017 09:59
--- NOTE | 2017-02-18 15:49 | HHI.PR ---
Subjective Subjective Notes DAILY PROGRESS NOTE FOR SURGICAL ATTENDING, DR. ADAN DAVIS Resting in bed Reports no flatus or BM Painful overnight Objective Vitals/I&O Vital Signs Date Time Temp Pulse Resp B/P Pulse Ox O2 Delivery O2 Flow Rate FiO2 02/18/17 13:16 18 02/18/17 12:00 97.2 70 104/55 90 02/17/17 08:00 Room Air Labs Laboratory Tests Test 02/18/17 03:47 White Blood Count 5.6 Red Blood Count 3.57 Hemoglobin 11.5 Hematocrit 33.3 Mean Corpuscular Volume 93.5 Mean Corpuscular Hemoglobin 32.2 Mean Corpuscular Hemoglobin 34.4 Concent Red Cell Distribution Width 15.1 Platelet Count 166 Mean Platelet Volume 7.5 Neutrophils (%) (Auto) 36.9 Lymphocytes (%) (Auto) 47.8 Monocytes (%) (Auto) 11.8 Eosinophils (%) (Auto) 3.1 Basophils (%) (Auto) 0.4 Neutrophils # (Auto) 2.1 Lymphocytes # (Auto) 2.7 Monocytes # (Auto) 0.7 Eosinophils # (Auto) 0.2 Basophils # (Auto) 0.0 CBC Comment AUTO DIFF Differential Total Cells 100 Counted Neutrophils % (Manual) 39 Lymphocytes % 48 Monocytes % 11 Eosinophils % 2 Neutrophils # (Manual) 2.2 Differential Comment FINAL DIFF MANUAL Platelet Estimate LOW Platelet Morphology Comment NORMAL Sodium Level 142 Potassium Level 4.6 Chloride Level 110 Carbon Dioxide Level 26.7 Anion Gap 5 Blood Urea Nitrogen 16 Creatinine 0.74 Estimat Glomerular Filtration 84 Rate Random Glucose 84 Calcium Level 8.5 Phosphorus Level 3.3 Total Bilirubin 0.4 Aspartate Amino Transf 57 (AST/SGOT) Alanine Aminotransferase 60 (ALT/SGPT) Alkaline Phosphatase 72 Total Protein 6.5 Albumin 2.5 Date/Time Procedure Status Source Growth 02/17/17 05:35 Aerobic Blood Culture - Preliminary Resulted Blood Peripheral Pleomorphic Gram Positive Rods 02/17/17 05:35 Anaerobic Blood Culture - Preliminary Resulted Blood Peripheral NO GROWTH IN 1 DAY Radiology Last Impressions Abdomen X-Ray 02/18/17 0000 Signed Impressions: Service Date/Time: Saturday, February 18, 2017 06:41 - CONCLUSION: 1. Constipation. 2. No dilated bowel loops. Ángel Najera MD Chest X-Ray 02/17/17526 Signed Impressions: Service Date/Time: Friday, February 17, 2017 06:02 - CONCLUSION: Minimal linear scarring or atelectasis in the lungs. No effusion or pneumothorax. Adan Matta MD Abdomen/Pelvis CT 02/17/17526 Signed Impressions: Service Date/Time: Friday, February 17, 2017 07:19 - CONCLUSION: 1. Multiple dilated loops of small bowel without focal caliber change or destructive mass/lesion. 2. Large spleno-renal shunt consistent with portal hypertension. The liver itself appears unremarkable. The splenic vein and portal vein are patent. Jey Edwards Jr., MD Cardiovascular: Regular Lungs: Clear Abdomen: Other (mildly distended; tender to palpation ) Extremities: No edema A/P Problem List: (1) Constipation by delayed colonic transit (2) Abdominal pain (3) History of appendectomy (4) History of hysterectomy (5) Hx of psychiatric hospitalization (6) Hepatitis C Assessment and Plan 47 year old female with SBO -KUB shows constipation -Added cathartics -NPO -NGT to LIWS -OOB and walk hallways -Continue non op management Attending Statement NOTE FOR SURGICAL ATTENDING, DR. ADAN DAVIS I agree with above assessment and plan. The exam, history, and the medical decision-making described in the above note were completed with the assistance of the mid-level provider. I reviewed and agree with the findings presented. Slow improvement Passing some flatus I attest that I had a [id number] encounter with the patient on the same day, and personally performed and documented my assessment and findings in the medical record. The following services were provided during this hospital visit: Chart data review, vital sign assessments/reviewing monitor data Review of consultations notes if present. Medication orders/review and/or management Ordering and/or reviewing lab tests Ordering and/or interpreting/reviewing x-rays and/or diagnostic studies Care of the patient and discussion of the patient with the care team Documentation time To help prompt me to consider important information that might be impacting today's encounter and assessment, information from prior notes written by myself or my colleagues may have been "brought forward/copy and pasted" into today's note. Problem Qualifiers (1) Abdominal pain: Qualified Code: R10.13 - Epigastric pain (2) Hepatitis C: Qualified Code: B18.2 - Chronic hepatitis C without hepatic coma Radha Rodriguez Feb 18, 2017 15:49 Adan Davis MD Feb 19, 2017 14:08
[2017-02-18] MEDS: ONDANSETRON HCL 4 MG/2 ML VIAL IVP PRN (21:15)
[2017-02-18] MEDS ORDERED: PHENOL 1.4% SOLN 180 ML BTL OROPHARYNG PRN (21:45)
[2017-02-19] MEDS: DEXT 5%-NACL 0.9% 1000 ML INJ 1,000 ML IV SCH ×4 (00:02→22:54)
[2017-02-19] MEDS: HYDROmorphone HCL PF 1 MG/ML VIAL IV PUSH PRN ×4 (03:03→20:50)
[2017-02-19] MEDS: PANTOPRAZOLE SODIUM 40 MG VIAL IV PUSH SCH (05:58)
[2017-02-19] MEDS: METOCLOPRAMIDE HCL 10 MG/2 ML VIAL IM SCH ×2 (05:58→12:20)
[2017-02-19] MEDS: KETOROLAC TROMETHAMINE 30 MG/ML (IVP) VIAL IV PUSH SCH ×2 (05:59)
[2017-02-19 08:00] VITALS: BP 93/62; PULSE 64; RESP 17; TEMP 98.4; O2SAT 96
[2017-02-19] MEDS: SODIUM CHLORIDE 0.9% FLUSH 10 ML FLUSH IV FLUSH SCH ×2 (08:43→20:50)
[2017-02-19] MEDS: DOCUSATE SODIUM 100 MG CAP PO SCH ×2 (08:55→20:50)
[2017-02-19] MEDS: BISACODYL 10 MG SUPP RECTAL SCH (08:55)
[2017-02-19] MEDS: NICOTINE 14 MG/24 HR PATCH T-DERMAL SCH (08:59)
[2017-02-19] MEDS: REMOVE OLD PATCH T-DERMAL SCH (08:59)
--- NOTE | 2017-02-19 09:46 | HHI.PR ---
Subjective Remarks The patient started a clear liquid diet today and tolerated it well. She would like her NG tube removed as soon as possible. She has been ambulating. She says her pain is still difficult to control but it is improved. She said she had just had another suppository. She still has not had a bowel movement. She has been passing gas. Objective Vitals Vital Signs Date Time Temp Pulse Resp B/P Pulse Ox O2 Delivery O2 Flow Rate FiO2 02/19/17 08:00 98.4 64 17 93/62 96 02/18/17 23:54 99.0 75 17 100/57 98 02/18/17 20:00 96.6 70 17 94/54 98 02/18/17 18:43 18 02/18/17 16:37 18 02/18/17 16:00 98.8 76 16 95/50 97 02/18/17 12:00 97.2 70 16 104/55 90 I/O 02/18/17 02/18/17 02/18/17 02/19/17 02/19/17 02/19/17 07:00 15:00 23:00 07:00 15:00 23:00 Intake Total 100 ml 1163 ml Output Total 1000 ml 100 ml 800 ml 1225 ml Balance -900 ml 1063 ml -800 ml -1225 ml Intake Oral 0 ml 0 ml IV Total 100 ml 1163 ml Output Urine Total 800 ml 800 ml 1000 ml Gastric Drainage Total 200 ml 100 ml 225 ml # Voids 1 # Bowel Movements 0 0 Result Diagram: 02/18/17 0347 02/18/17 0347 Imaging Last Impressions Abdomen X-Ray 02/18/17 0000 Signed Impressions: Service Date/Time: Saturday, February 18, 2017 06:41 - CONCLUSION: 1. Constipation. 2. No dilated bowel loops. Ángel Najera MD Chest X-Ray 02/17/17526 Signed Impressions: Service Date/Time: Friday, February 17, 2017 06:02 - CONCLUSION: Minimal linear scarring or atelectasis in the lungs. No effusion or pneumothorax. Adan Matta MD Abdomen/Pelvis CT 02/17/17526 Signed Impressions: Service Date/Time: Friday, February 17, 2017 07:19 - CONCLUSION: 1. Multiple dilated loops of small bowel without focal caliber change or destructive mass/lesion. 2. Large spleno-renal shunt consistent with portal hypertension. The liver itself appears unremarkable. The splenic vein and portal vein are patent. Jey Edwards Jr., MD Objective Remarks GENERAL: The patient appears comfortable. SKIN: No rashes, ecchymoses or lesions. Cool and dry. HEAD: Atraumatic. Normocephalic. No temporal or scalp tenderness. EYES: Pupils equal round and reactive. Extraocular motions intact. No scleral icterus. No injection or drainage. ENT: Nose without bleeding, purulent drainage or septal hematoma. Throat without erythema, tonsillar hypertrophy or exudate. Uvula midline. Airway patent. NG tube in place. NECK: Trachea midline. No JVD or lymphadenopathy. Supple, nontender, no meningeal signs. CARDIOVASCULAR: Regular rate and rhythm without murmurs, gallops, or rubs. RESPIRATORY: Clear to auscultation. Breath sounds equal bilaterally. No wheezes , rales, or rhonchi. GASTROINTESTINAL: Abdomen distended but soft. Minimally tender to palpation. MUSCULOSKELETAL: Extremities without clubbing, cyanosis, or edema. No joint tenderness, effusion, or edema noted. NEUROLOGICAL: Awake and alert. Cranial nerves II through XII intact. Motor and sensory grossly within normal limits. Five out of 5 muscle strength in all muscle groups. Normal speech. PSYCH: Mood and affect appropriate. Medications and IVs Current Medications Medications (Trade) Dose Ordered Sig/Jerrell Route Start Time Stop Time Status Last Admin (NS Flush) 2 ml UNSCH PRN IV FLUSH 02/17/17 08:45 02/18/17 12:16 (NS Flush) 2 ml BID IV FLUSH 02/17/17 09:00 02/17/17 18:38 (Tylenol) 650 mg Q4H PRN PO 02/17/17 08:45 (Zofran Inj) 4 mg Q6H PRN IVP 02/17/17 08:45 02/18/17 21:15 (Colace) 100 mg Q12HR PO 02/17/17 10:00 02/19/17 08:55 (Senokot) 17.2 mg Q12H PRN PO 02/17/17 08:45 (Tylenol) 650 mg Q6H PRN PO 02/17/17 08:45 (Roxicodone) 10 mg Q4H PRN PO 02/17/17 08:45 02/19/17 08:58 (Roxicodone) 5 mg Q4H PRN PO 02/17/17 08:45 02/18/17 04:28 Naloxone HCl 0.4 mg 0.4 mg UNSCH PRN IV 02/17/17 08:45 (D5W-NS 1000 ml Inj) 1,000 ml @ 150 mls/hr Q6H40M IV 02/17/17 08:45 02/19/17 06:03 (Reglan Inj) 10 mg Q8HR IM 02/17/17 14:00 02/19/17 05:58 (Protonix Inj) 40 mg Q12H IV PUSH 02/17/17 18:00 02/19/17 05:58 (Habitrol 14 Mg Patch.24 Hr) 1 patch DAILY T-DERMAL 02/17/17 16:00 02/17/17 17:32 Miscellaneous Information 1 DAILY T-DERMAL 02/17/17 16:00 02/17/17 22:37 (Dilaudid Pf Inj) 0.5 mg Q3HR PRN IV PUSH 02/18/17 08:45 02/19/17 09:03 (Dulcolax Supp) 10 mg DAILY RECTAL 02/19/17 09:00 02/19/17 08:55 (Chloraseptic [place]) 2 spray Q2H PRN OROPHARYNG 02/18/17 21:45 02/19/17 00:00 A/P Assessment and Plan Abdominal pain/ N/V The patient has significant pain as well as nausea and vomiting. She has a history of bowel obstruction requiring surgery. LFTs minimally elevated and lipase unremarkable. CT of the abdomen showed: Multiple dilated loops of small bowel without focal caliber change or destructive mass/lesion; Large spleno- renal shunt consistent with portal hypertension. Appreciate surgical consultation. KUB 02/18 with constipation, no dilated bowel loops. Symptoms have improved greatly. - Continue conservative management with NG tube, pain meds and antiemetics as needed. Try to wean pain meds. - advanced to clear liquid diet 02/19. Continue IV fluids for now. - continue suppositories per surgery. - PPI. - likely remove NGT later today. Hypotension Likely secondary to decreased by mouth intake and vomiting. Stable. - IVFs. - careful use of pain meds. Substance abuse The patient uses methamphetamine as well as smokes a pack of cigarettes every 2 days. - Cessation instruction. - Nicotine patch offered. Elevated LFTs The patient has a history of cirrhosis. Liver unremarkable on CT scan. - Continue to trend LFTs as needed. Stable. PPx: SCDs. Discharge Planning Awaiting clinical improvement. Igor Tate DO Feb 19, 2017 09:46
--- NOTE | 2017-02-19 10:31 | HHI.PR ---
Subjective Subjective Notes DAILY PROGRESS NOTE FOR SURGICAL ATTENDING, DR. ADAN DAVIS Did not rest well Started passing gas yesterday Wants NGT out Objective Vitals/I&O Vital Signs Date Time Temp Pulse Resp B/P Pulse Ox O2 Delivery O2 Flow Rate FiO2 02/19/17 08:00 98.4 64 17 93/62 96 02/17/17 08:00 Room Air Labs Date/Time Procedure Status Source Growth 02/17/17 05:35 Aerobic Blood Culture - Preliminary Resulted Blood Peripheral Pleomorphic Gram Positive Rods 02/17/17 05:35 Anaerobic Blood Culture - Preliminary Resulted Blood Peripheral NO GROWTH IN 1 DAY Radiology Last Impressions Abdomen X-Ray 02/18/17 0000 Signed Impressions: Service Date/Time: Saturday, February 18, 2017 06:41 - CONCLUSION: 1. Constipation. 2. No dilated bowel loops. Ángel Najera MD Chest X-Ray 02/17/17 0527 Signed Impressions: Service Date/Time: Friday, February 17, 2017 06:02 - CONCLUSION: Minimal linear scarring or atelectasis in the lungs. No effusion or pneumothorax. Adan Matta MD Abdomen/Pelvis CT 02/17/17 0527 Signed Impressions: Service Date/Time: Friday, February 17, 2017 07:19 - CONCLUSION: 1. Multiple dilated loops of small bowel without focal caliber change or destructive mass/lesion. 2. Large spleno-renal shunt consistent with portal hypertension. The liver itself appears unremarkable. The splenic vein and portal vein are patent. Jey Edwards Jr., MD Cardiovascular: Regular Lungs: Clear Abdomen: Other (soft; tender to palpation ) Extremities: No edema Narrative Exam NGT in place--clamped A/P Assessment and Plan 47 year old female with SBO -Continu cathartics -Clamp NGT -Start clears -OOB and walk hallways -Continue non op management Attending Statement NOTE FOR SURGICAL ATTENDING, DR. ADAN DAVIS I agree with above assessment and plan. The exam, history, and the medical decision-making described in the above note were completed with the assistance of the mid-level provider. I reviewed and agree with the findings presented. Patient just out of the shower she says she feels 100% better would like to increase her diet had a bowel movement earlier today I attest that I had a [id number] encounter with the patient on the same day, and personally performed and documented my assessment and findings in the medical record. The following services were provided during this hospital visit: Chart data review, vital sign assessments/reviewing monitor data Review of consultations notes if present. Medication orders/review and/or management Ordering and/or reviewing lab tests Ordering and/or interpreting/reviewing x-rays and/or diagnostic studies Care of the patient and discussion of the patient with the care team Documentation time To help prompt me to consider important information that might be impacting today's encounter and assessment, information from prior notes written by myself or my colleagues may have been "brought forward/copy and pasted" into today's note. Radha Rodriguez Feb 19, 2017 10:31 Adan Davis MD Feb 19, 2017 14:10
[2017-02-19 12:00] VITALS: BP 109/58; PULSE 69; RESP 16; TEMP 98.4; O2SAT 96
[2017-02-19] MEDS ORDERED: INFLUENZA VIRUS VACCINE (QUADRIVALENT) 0.5 ML SYR IM ONE (12:30)
[2017-02-19] MEDS ORDERED: MAGNESIUM CITRATE SOLN 300 ML BTL PO ONE (15:00)
[2017-02-19 16:00] VITALS: BP 98/53; PULSE 68; RESP 16; TEMP 99.4; O2SAT 97
[2017-02-19 20:17] VITALS: BP 106/54; PULSE 71; RESP 17; TEMP 99.8; O2SAT 97
[2017-02-19 23:45] VITALS: BP 111/53; PULSE 79; RESP 16; TEMP 99.5; O2SAT 97
[2017-02-20] MEDS: ONDANSETRON HCL 4 MG/2 ML VIAL IVP PRN (00:52)
[2017-02-20] MEDS: HYDROmorphone HCL PF 1 MG/ML VIAL IV PUSH PRN ×2 (05:26→10:30)
[2017-02-20] MEDS: DEXT 5%-NACL 0.9% 1000 ML INJ 1,000 ML IV SCH ×2 (05:28→11:14)
[2017-02-20 07:37] LABS: HEMATOCRIT 32.4 % (35.0-46.0); MEAN CELL VOLUME 93.2 FL (80.0-100.0); MEAN CORPUSCULAR HEMOGLOBIN 31.9 PG (27.0-34.0); MEAN CORPUSCULAR HGB CONC 34.3 % (32.0-36.0); PLATELET COUNT 150 TH/MM3 (150-450); RED BLOOD COUNT 3.48 MIL/MM3 (4.00-5.30); RED CELL DISTRIBUTION WIDTH 14.1 % (11.6-17.2); REVIEW FLAG FINAL; WHITE BLOOD COUNT 4.8 TH/MM3 (4.0-11.0)
[2017-02-20 08:00] VITALS: BP 112/57; PULSE 65; RESP 14; TEMP 99.3; O2SAT 97
[2017-02-20 08:16] LABS: BICARBONATE 29.8 MEQ/L (21.0-32.0); MAGNESIUM 1.8 MG/DL (1.5-2.5); POTASSIUM 4.2 MEQ/L (3.5-5.1)
[2017-02-20] MEDS: DOCUSATE SODIUM 100 MG CAP PO SCH (08:31)
[2017-02-20] MEDS: SODIUM CHLORIDE 0.9% FLUSH 10 ML FLUSH IV FLUSH SCH (08:31)
[2017-02-20] MEDS: BISACODYL 10 MG SUPP RECTAL SCH (08:31)
[2017-02-20] MEDS: REMOVE OLD PATCH T-DERMAL SCH (08:31)
[2017-02-20] MEDS: NICOTINE 14 MG/24 HR PATCH T-DERMAL SCH (08:32)
[2017-02-20] MEDS ORDERED: PANTOPRAZOLE SOD 20 MG DELAYED RELEASE TAB PO SCH (09:00)
[2017-02-20] MEDS ORDERED: ACETAMINOPHEN/HYDROcodone 325 MG/5 MG TAB PO PRN (10:45)
[2017-02-20] MEDS ORDERED: PANT20 PO (10:52)
[2017-02-20] MEDS ORDERED: HYDR-3516 PO (10:52)
--- NOTE | 2017-02-20 10:56 | HHI.DCPOC ---
Discharge Care Plan Diagnosis: (1) History of appendectomy (2) History of hysterectomy (3) Portal hypertension (4) Abdominal pain (5) Constipation by delayed colonic transit (6) Ileus Goals to Promote Your Health * To prevent worsening of your condition and complications * To maintain your health at the optimal level Directions to Meet Your Goals Take your medications as prescribed Follow your dietary instruction Follow activity as directed Keep your appointments as scheduled Take your immunizations and boosters as scheduled If your symptoms worsen call your PCP, if no PCP go to Urgent Care Center or Emergency Room Smoking is Dangerous to Your Health. Avoid second hand smoke Call the 24-hour hour crisis hotline for domestic abuse at Igor Tate DO Feb 20, 2017 10:56
[2017-02-20 11:00] VITALS: RESP 18
--- NOTE | 2017-02-20 11:05 | HHI.DS ---
Discharge Summary Admission Date Feb 17, 2017 at 08:04 Discharge Date: Feb 20, 2017 Admitting Diagnosis abdominal pain, ileus versus bowel obstruction (1) Abdominal pain ICD Code: R10.9 Diagnosis: Principal (2) Ileus ICD Code: K56.7 (3) Portal hypertension ICD Code: K76.6 (4) History of appendectomy ICD Code: Z90.49 (5) History of hysterectomy ICD Code: Z90.710 Procedures None. Brief History - From Admission The patient is a 47-year-old female with a past medical history of bowel obstruction requiring surgical resection who is presenting to the hospital with significant abdominal pain as well as nausea and vomiting. The patient says that about 2 days ago she woke up feeling significant abdominal pain. She says the pain is located above her bellybutton and does not radiate anywhere. She describes the pain as a stabbing sensation and she rates the pain as a 10 out of 10 in severity at its worst. The patient says that the pain comes in spasms about every 5 minutes. She says it continues all day long. She also endorses pain in her right flank area. She is not sure if the 2 pains are connected. She also has come down with nausea and vomiting. She said she vomited earlier but has not vomited since being in the hospital. She does not think that the NG tube is helping. She says she would like surgery to fix the problem. She says she has not noticed any fevers but she has felt warm. She says that she has had 3 normal bowel movements yesterday. She has not had any bowel movements today and has not been passing any gas. CBC/BMP: 02/20/17 0701 02/20/17 0701 Significant Findings Laboratory Tests Test 02/18/17 02/20/17 03:47 07:01 Red Blood Count 3.57 MIL/MM3 3.48 MIL/MM3 (4.00-5.30) (4.00-5.30) Hemoglobin 11.5 GM/DL 11.1 GM/DL (11.6-15.3) (11.6-15.3) Hematocrit 33.3 % 32.4 % (35.0-46.0) (35.0-46.0) Lymphocytes (%) (Auto) 47.8 % (9.0-44.0) Monocytes (%) (Auto) 11.8 % (0.0-8.0) Lymphocytes % 48 % (9-44) Monocytes % 11 % (0-8) Platelet Estimate LOW (NORMAL) Chloride Level 110 MEQ/L (98-107) Estimat Glomerular Filtration 84 ML/MIN (>89) Rate Aspartate Amino Transf 57 U/L (15-37) (AST/SGOT) Alanine Aminotransferase 60 U/L (10-53) (ALT/SGPT) Albumin 2.5 GM/DL (3.4-5.0) Blood Urea Nitrogen 5 MG/DL (7-18) Imaging Last Impressions Abdomen X-Ray 02/18/17 0000 Signed Impressions: Service Date/Time: Saturday, February 18, 2017 06:41 - CONCLUSION: 1. Constipation. 2. No dilated bowel loops. Ángel Najera MD Chest X-Ray 02/17/17526 Signed Impressions: Service Date/Time: Friday, February 17, 2017 06:02 - CONCLUSION: Minimal linear scarring or atelectasis in the lungs. No effusion or pneumothorax. Adan Matta MD Abdomen/Pelvis CT 02/17/17526 Signed Impressions: Service Date/Time: Friday, February 17, 2017 07:19 - CONCLUSION: 1. Multiple dilated loops of small bowel without focal caliber change or destructive mass/lesion. 2. Large spleno-renal shunt consistent with portal hypertension. The liver itself appears unremarkable. The splenic vein and portal vein are patent. Jey Edwards Jr., MD PE at Discharge GENERAL: The patient appears comfortable. SKIN: No rashes, ecchymoses or lesions. Cool and dry. HEAD: Atraumatic. Normocephalic. No temporal or scalp tenderness. EYES: Pupils equal round and reactive. Extraocular motions intact. No scleral icterus. No injection or drainage. ENT: Nose without bleeding, purulent drainage or septal hematoma. Throat without erythema, tonsillar hypertrophy or exudate. Uvula midline. Airway patent. NECK: Trachea midline. No JVD or lymphadenopathy. Supple, nontender, no meningeal signs. CARDIOVASCULAR: Regular rate and rhythm without murmurs, gallops, or rubs. RESPIRATORY: Clear to auscultation. Breath sounds equal bilaterally. No wheezes , rales, or rhonchi. GASTROINTESTINAL: Abdomen soft and nontender to palpation. MUSCULOSKELETAL: Extremities without clubbing, cyanosis, or edema. No joint tenderness, effusion, or edema noted. NEUROLOGICAL: Awake and alert. Cranial nerves II through XII intact. Motor and sensory grossly within normal limits. Five out of 5 muscle strength in all muscle groups. Normal speech. PSYCH: Mood and affect appropriate. Pt update on day of discharge The patient was ambulating the hallway. She said her abdominal pain has improved. She said she had a lot of bowel movements. She would like to try a regular diet. Discussed with nursing. Hospital Course Abdominal pain/ N/V The patient had significant pain as well as nausea and vomiting. She has a history of bowel obstruction requiring surgery. LFTs minimally elevated and lipase unremarkable. CT of the abdomen showed: Multiple dilated loops of small bowel without focal caliber change or destructive mass/lesion; Large spleno- renal shunt consistent with portal hypertension. Appreciate surgical consultation. KUB 02/18 with constipation, no dilated bowel loops. Surgery was consulted. She received conservative management with NG tube, pain meds and antiemetics as needed. She received suppositories per surgery. Symptoms have improved greatly and she is tolerating a diet. She will continue a PPI. She will advance her diet as tolerated. She will follow up with surgery as an outpt. Hypotension Improved with increased PO intake. Substance abuse The patient uses methamphetamine as well as smokes a pack of cigarettes every 2 days. She received cessation instruction. A nicotine patch was offered. Elevated LFTs The patient has a history of cirrhosis. Liver unremarkable on CT scan. She will have outpt follow-up. Pt Condition on Discharge: Good Discharge Disposition: Discharge Home Discharge Time: > 30 minutes Discharge Instructions DIET: Follow Instructions for: As Tolerated, No Restrictions, Low Residue Diet Activities you can perform: Regular-No Restrictions Follow up Referrals: PCP Follow-up - 1 Week Surgical - 2-3 Days with Adan Davis MD New Medications: Hydrocodone-Acetaminophen (Hydrocodone-Acetaminophen) 5-325 mg Tab 1 TAB PO Q4H PRN pain #20 TAB Pantoprazole (Protonix) 20 Mg Tab 20 MG PO DAILY GERD #30 TAB Sayess,Gino. DO Feb 20, 2017 11:05
== END 2017-02-20 12:27 | disposition home or self-care (01) | DRG 389 ==
LOC: NEPC 05:19 → NEDA 08:04 → N07A 19:50
PROVIDERS: ADMIT Hospitalist; ATTEND Hospitalist
DX: K56.7 Ileus, unspecified (principal); K76.6 Portal hypertension; K74.60 Unspecified cirrhosis of liver; I95.9 Hypotension, unspecified; J44.9 Chronic obstructive pulmonary disease, unspecified; B19.20 Unspecified viral hepatitis C without hepatic coma; F17.210 Nicotine dependence, cigarettes, uncomplicated; M19.90 Unspecified osteoarthritis, unspecified site; R00.1 Bradycardia, unspecified; F20.9 Schizophrenia, unspecified; E78.5 Hyperlipidemia, unspecified; F15.10 Other stimulant abuse, uncomplicated; Z23 Encounter for immunization; Z90.710 Acquired absence of both cervix and uterus; Z90.49 Acquired absence of other specified parts of digestive tract; Z85.41 Personal history of malignant neoplasm of cervix uteri
CPT/HCPCS: 71010; 74000; 74177; 80048; 80053; 80307; 81001; 82550; 83605; 83690; 83735; 83880; 84100; 84484; 84702; 84703; 85007; 85025; 85027; 86140; 86403; 87040; 87205; 90686; 90732; 93005; 96361; 96374; 96375; C9113; J1170; J1885; J2270; J2405; J2765; J7030; J7040; J7042; Q2038; Q9967

== ENCOUNTER 2017-02-24 13:10 | Emergency (ER) | payer OTHER ==
[~2017-02-24] VITALS: Ht 165.1 cm; Wt 65.0 kg
[~2017-02-24 13:10] MED LIST changes: -DICL75 PO; +HYDR-3516 PO; -KLON2TAB PO; +PANT20 PO; -PRED20 PO; -SOMA350T PO; -VENTAER INH
[2017-02-24 13:11] VITALS: BP 123/56; PULSE 68; RESP 16; TEMP 97.6; O2SAT 97
[2017-02-24] MEDS ORDERED: SODIUM CHLORIDE 0.9% FLUSH 10 ML FLUSH IV FLUSH PRN (13:45)
--- NOTE | 2017-02-24 13:45 | PD ---
HPI Chief Complaint: Abdominal Pain Time Seen by Provider: 13:25 Travel History International Travel<30 days: No Contact w/Intl Traveler<30days: No Traveled to known affect area: No History of Present Illness HPI 47yo F with PMH of Hep C, schizophrenia, cirrhosis, substance abuse, small bowel obstruction s/p bowel resection presents to the ED with c/o no bowel movement since 4 days ago. Pt state her abdominal pain is returning and now it is epigastric, constant and nonradiating. Abdominal pain started yesterday. + Flatus. Denies any fever, chest pain, sob, urinary complaints. Pt was admitted 02/17/17-02/20/17 for small bowel obstruction that was conservatively managed with NG tube. Pt was discharged with lortab and has been taking it. PFSH Past Medical History Arthritis: Yes Asthma: Yes Blood Disorders: No Bipolar Disorder: Yes Anxiety: Yes Depression: Yes Cancer: No (cervical-hysterectomy) Cardiovascular Problems: Yes High Cholesterol: Yes Chemotherapy: No COPD: Yes Cerebrovascular Accident: No Diminished Hearing: No Endocrine: No Gastrointestinal Disorders: Yes Genitourinary: No Headaches: No Hepatitis: Yes (HEPATITIS C) Immune Disorder: No Musculoskeletal: Yes Neurologic: Yes Psychiatric: Yes (Bipolar, Schizophrenic, PTSD) Reproductive: Yes (Endometriosis) Respiratory: Yes Migraines: No Radiation Therapy: No Schizophrenia: Yes Seizures: Yes (childhood) Ulcer: Yes Menopausal: Yes Past Surgical History Abdominal Surgery: Yes (Bowel Blockage; Appendix) AICD: No Appendectomy: Yes (1994) Arteriovenous Shunt: No Body Medical Devices: surgical clamps in stomach Cardiac Surgery: No Ear Surgery: No Endocrine Surgery: No Eye Surgery: No Genitourinary Surgery: No Gynecologic Surgery: Yes (Hysterectomy; Endometriosis) Hysterectomy: Yes (1994) Insulin Pump: No Joint Replacement: No Neurologic Surgery: No Oral Surgery: No Pacemaker: No Thoracic Surgery: No Other Surgery: Yes (LUMPECTOMY LEFT BREAST 2007 ) Social History Alcohol Use: No Tobacco Use: Yes (11/24 PPD) Substance Use: Yes (recovering addict) Allergies-Medications (Allergen,Severity, Reaction): Coded Allergies: Albuterol (Verified Allergy, Severe, Hives, 02/24/17) Reported Meds & Prescriptions Reported Meds & Active Scripts Active Miralax Powder (Polyethylene Glycol 3350 Powder) 17 Gm Powd 17 Gm PO DAILY 5 Days Mix and dissolve one measuring cap-ful (17 grams) in water or juice. Protonix (Pantoprazole Sodium) 20 Mg Tab 20 Mg PO DAILY Hydrocodone-Acetaminophen 5-325 mg Tab 1 Tab PO Q4H PRN Review of Systems Except as stated in HPI: all other systems reviewed are Neg Physical Exam Narrative GENERAL: 47yo F not in distress. SKIN: Focused skin assessment warm/dry. HEAD: Atraumatic. Normocephalic. EYES: Pupils equal and round. No scleral icterus. No injection or drainage. ENT: No nasal bleeding or discharge. Mucous membranes pink and moist. NECK: Trachea midline. No JVD. CARDIOVASCULAR: Regular rate and rhythm. No murmur appreciated. RESPIRATORY: No accessory muscle use. Clear to auscultation. Breath sounds equal bilaterally. GASTROINTESTINAL: Abdomen soft, +Mild TTP epigastric and LUQ. No rebound tenderness or guarding. MUSCULOSKELETAL: No obvious deformities. No clubbing. No cyanosis. No edema. NEUROLOGICAL: Awake and alert. No obvious cranial nerve deficits. Motor grossly within normal limits. Normal speech. PSYCHIATRIC: Appropriate mood and affect; insight and judgment normal. Data Data Last Documented VS Vital Signs Date Time Temp Pulse Resp B/P Pulse Ox O2 Delivery O2 Flow Rate FiO2 02/24/17 14:28 58 17 105/52 98 Room Air 02/24/17 13:11 97.6 Orders Abdomen, Flat & Upright (02/24/17 ) Complete Blood Count With Diff (02/24/17 13:37) Comprehensive Metabolic Panel (02/24/17 13:37) Lipase (02/24/17 13:37) Prothrombin Time / Inr (Pt) (02/24/17 13:37) Act Partial Throm Time (Ptt) (02/24/17 13:37) Urinalysis - C+S If Indicated (02/24/17 13:37) Iv Access Insert/Monitor (02/24/17 13:37) Ecg Monitoring (02/24/17 13:37) Oximetry (02/24/17 13:37) Sodium Chloride 0.9% Flush (Ns Flush) (02/24/17 13:45) Electrocardiogram (02/24/17 13:37) Ketorolac Inj (Toradol Inj) (02/24/17 15:00) Fleets Enema (Adult) (Fleets Enema (Adul (02/24/17 15:00) Labs Laboratory Tests Test 02/24/17 13:55 White Blood Count 9.3 TH/MM3 Red Blood Count 3.75 MIL/MM3 Hemoglobin 12.0 GM/DL Hematocrit 35.4 % Mean Corpuscular Volume 94.3 FL Mean Corpuscular Hemoglobin 32.1 PG Mean Corpuscular Hemoglobin 34.0 % Concent Red Cell Distribution Width 14.7 % Platelet Count 207 TH/MM3 Mean Platelet Volume 7.2 FL Neutrophils (%) (Auto) 36.1 % Lymphocytes (%) (Auto) 42.9 % Monocytes (%) (Auto) 18.0 % Eosinophils (%) (Auto) 2.0 % Basophils (%) (Auto) 1.0 % Neutrophils # (Auto) 3.3 TH/MM3 Lymphocytes # (Auto) 4.0 TH/MM3 Monocytes # (Auto) 1.7 TH/MM3 Eosinophils # (Auto) 0.2 TH/MM3 Basophils # (Auto) 0.1 TH/MM3 CBC Comment DIFF FINAL Differential Comment Prothrombin Time 10.7 SEC Prothromb Time International 1.0 RATIO Ratio Activated Partial 27.8 SEC Thromboplast Time Urine Color YELLOW Urine Turbidity CLEAR Urine pH 5.5 Urine Specific [place] 1.021 Urine Protein NEG mg/dL Urine Glucose (UA) NEG mg/dL Urine Ketones NEG mg/dL Urine Occult Blood NEG Urine Nitrite NEG Urine Bilirubin NEG Urine Urobilinogen 2.0 MG/DL Urine Leukocyte Esterase NEG Urine RBC LESS THAN 1 /hpf Urine WBC 2 /hpf Urine Squamous Epithelial 1 /hpf Cells Urine Mucus FEW /lpf Microscopic Urinalysis Comment CULT NOT INDICATED Sodium Level 140 MEQ/L Potassium Level 4.2 MEQ/L Chloride Level 104 MEQ/L Carbon Dioxide Level 27.2 MEQ/L Anion Gap 9 MEQ/L Blood Urea Nitrogen 11 MG/DL Creatinine 0.83 MG/DL Estimat Glomerular Filtration 73 ML/MIN Rate Random Glucose 115 MG/DL Calcium Level 8.9 MG/DL Total Bilirubin 0.2 MG/DL Aspartate Amino Transf 53 U/L (AST/SGOT) Alanine Aminotransferase 55 U/L (ALT/SGPT) Alkaline Phosphatase 105 U/L Total Protein 8.0 GM/DL Albumin 3.0 GM/DL Lipase 105 U/L [facility] Medical Decision Making Medical Screen Exam Complete: Yes Emergency Medical Condition: Yes Interpretation(s) EKG: Sinus bradycardia at 58bpm. Normal axis. No ST segment elevation or depression. Laboratory Tests Test 02/24/17 13:55 White Blood Count 9.3 TH/MM3 (4.0-11.0) Red Blood Count 3.75 MIL/MM3 (4.00-5.30) Hemoglobin 12.0 GM/DL (11.6-15.3) Hematocrit 35.4 % (35.0-46.0) Mean Corpuscular Volume 94.3 FL (80.0-100.0) Mean Corpuscular Hemoglobin 32.1 PG (27.0-34.0) Mean Corpuscular Hemoglobin 34.0 % Concent (32.0-36.0) Red Cell Distribution Width 14.7 % (11.6-17.2) Platelet Count 207 TH/MM3 (150-450) Mean Platelet Volume 7.2 FL (7.0-11.0) Neutrophils (%) (Auto) 36.1 % (16.0-70.0) Lymphocytes (%) (Auto) 42.9 % (9.0-44.0) Monocytes (%) (Auto) 18.0 % (0.0-8.0) Eosinophils (%) (Auto) 2.0 % (0.0-4.0) Basophils (%) (Auto) 1.0 % (0.0-2.0) Neutrophils # (Auto) 3.3 TH/MM3 (1.8-7.7) Lymphocytes # (Auto) 4.0 TH/MM3 (1.0-4.8) Monocytes # (Auto) 1.7 TH/MM3 (0-0.9) Eosinophils # (Auto) 0.2 TH/MM3 (0-0.4) Basophils # (Auto) 0.1 TH/MM3 (0-0.2) CBC Comment DIFF FINAL Differential Comment Prothrombin Time 10.7 SEC (9.8-11.6) Prothromb Time International 1.0 RATIO Ratio Activated Partial 27.8 SEC Thromboplast Time (24.3-30.1) Urine Color YELLOW (YELLW/STRAW) Urine Turbidity CLEAR (CLEAR) Urine pH 5.5 (5.0-8.5) Urine Specific [place] 1.021 (1.002-1.035) Urine Protein NEG mg/dL (NEG-TRACE) Urine Glucose (UA) NEG mg/dL (NEG) Urine Ketones NEG mg/dL (NEG) Urine Occult Blood NEG (NEG) Urine Nitrite NEG (NEG) Urine Bilirubin NEG (NEG) Urine Urobilinogen 2.0 MG/DL (LESS THAN 2.0) Urine Leukocyte Esterase NEG (NEG) Urine RBC LESS THAN 1 /hpf (0-3) Urine WBC 2 /hpf (0-5) Urine Squamous Epithelial 1 /hpf (0-5) Cells Urine Mucus FEW /lpf (OCC) Microscopic Urinalysis Comment CULT NOT INDICATED Sodium Level 140 MEQ/L (136-145) Potassium Level 4.2 MEQ/L (3.5-5.1) Chloride Level 104 MEQ/L (98-107) Carbon Dioxide Level 27.2 MEQ/L (21.0-32.0) Anion Gap 9 MEQ/L (5-15) Blood Urea Nitrogen 11 MG/DL (7-18) Creatinine 0.83 MG/DL (0.50-1.00) Estimat Glomerular Filtration 73 ML/MIN (>89) Rate Random Glucose 115 MG/DL (74-106) Calcium Level 8.9 MG/DL (8.5-10.1) Total Bilirubin 0.2 MG/DL (0.2-1.0) Aspartate Amino Transf 53 U/L (15-37) (AST/SGOT) Alanine Aminotransferase 55 U/L (10-53) (ALT/SGPT) Alkaline Phosphatase 105 U/L (45-117) Total Protein 8.0 GM/DL (6.4-8.2) Albumin 3.0 GM/DL (3.4-5.0) Lipase 105 U/L (73-393) Last Impressions Abdomen X-Ray 02/24/17 0000 Signed Impressions: Service Date/Time: Friday, February 24, 2017 14:22 - CONCLUSION: 1. No evidence of obstruction. 2. Constipation Elia Lara MD Differential Diagnosis Constipation vs. obstruction Narrative Course 47yo F well appearing female with no bowel movement for a few days. Pt is passing gas and is not vomiting. Mild abdominal pain. Labs reviewed, no leukocytosis. Elevated AST/ALT, at baseline. Lipase normal. UA negative. Xray abdomen showed no evidence of obstruction. Constipation. Pt given toradol with resolution of pain. Abdomen is soft, NT/ND. No rebound tenderness or guarding. Pt does not want a fleet enema here. Return precautions given. Diagnosis Primary Impression: CONSTIPATION, UNSPECIFIED Patient Instructions: General Instructions Departure Forms: Tests/Procedures Additional Instructions: Please follow up with your PMD in 3-7 days. Return to the ED if worsening pain , vomiting or any other concerning symptoms. Med/Other Pt SpecificInfo: Prescription(s) given Scripts Polyethylene Glycol 3350 Powder (Miralax Powder)17 Gm Powd17 Gm PO DAILY 5 Days Ref 0 Mix and dissolve one measuring cap-ful (17 grams) in water or juice. Prov:Nicole Espino DO 02/24/17 Disposition: 01 DISCHARGE HOME Condition: Stable Nicole Espino DO Feb 24, 2017 13:45
[2017-02-24 14:14] LABS: BLOOD, URINE NEG (NEG); GLUCOSE,URINE NEG (NEG); KETONE, URINE NEG (NEG); MUCUS URINE FEW /lpf (OCC); NITRITE,URINE NEG (NEG); PH, URINE 5.5 (5.0-8.5); SQUAMOUS EPITHELIAL CELL URINE 1 /hpf (0-5); URINE COLOR YELLOW (YELLW/STRAW)
[2017-02-24 14:15] LABS: COMMENT (UR) CULT NOT INDICATED; CULTURE IF INDICATED CULT NOT INDICATED
[2017-02-24 14:17] LABS: AUTOMATED NEUTROPHIL # 3.3 TH/MM3 (1.8-7.7); BASOPHIL # 0.1 TH/MM3 (0-0.2); EOSINOPHIL # 0.2 TH/MM3 (0-0.4); HEMATOCRIT 35.4 % (35.0-46.0); HEMO FLAGS DIFF FINAL; LYMPH % 42.9 % (9.0-44.0); MEAN CELL VOLUME 94.3 FL (80.0-100.0); MEAN CORPUSCULAR HEMOGLOBIN 32.1 PG (27.0-34.0); NEUT % 36.1 % (16.0-70.0); PLATELET COUNT 207 TH/MM3 (150-450); RED BLOOD COUNT 3.75 MIL/MM3 (4.00-5.30); RED CELL DISTRIBUTION WIDTH 14.7 % (11.6-17.2); WHITE BLOOD COUNT 9.3 TH/MM3 (4.0-11.0)
--- NOTE | 2017-02-24 14:20 | RADRPT ---
EXAM DATE/TIME: 02/24/2017 14:22 [facility] COMPARISON: No previous studies available for comparison. INDICATIONS : Obstruction, constipation MEDICAL HISTORY : obstruction 01/2016 SURGICAL HISTORY : Hysterectomy. part of colon removed years ago. ENCOUNTER: Initial ACUITY: 1 day PAIN SCORE: 3/10 LOCATION: Bilateral abdomen FINDINGS: The bowel gas pattern appears normal. No free air is identified. No organomegaly is evident. There is a large amount of fecal material throughout the colon consistent with constipation. Surgical clips a re present in the pelvis likely from prior node dissection. CONCLUSION: 1. No evidence of obstruction. 2. Constipation Elia Lara MD on February 24, 2017 at 14:19 Board Certified Radiologist. This report was verified electronically.
[2017-02-24 14:23] LABS: APTT (PATIENT) 27.8 SEC (24.3-30.1); PROTHROMBIN TIME - PATIENT 10.7 SEC (9.8-11.6)
[2017-02-24 14:24] VITALS: O2SAT 98
[2017-02-24 14:27] LABS: ALT (GPT) 55 U/L (10-53); ANION GAP 9 MEQ/L (5-15); AST (GOT) 53 U/L (15-37); BICARBONATE 27.2 MEQ/L (21.0-32.0); BLOOD UREA NITROGEN 11 MG/DL (7-18); CHLORIDE 104 MEQ/L (98-107); GLOMERULAR FILTRATION RATE 73 ML/MIN (>89); POTASSIUM 4.2 MEQ/L (3.5-5.1); SODIUM (NA) 140 MEQ/L (136-145)
[2017-02-24 14:28] VITALS: BP 105/52; PULSE 58; RESP 17; O2SAT 98
[2017-02-24 14:33] LABS: ALKALINE PHOSPHATASE 105 U/L (45-117); TOTAL BILIRUBIN ADULT 0.2 MG/DL (0.2-1.0)
[2017-02-24] MEDS ORDERED: SOD PHOSPHATE/SOD BIPHOSPHATE (ADULT) ENEMA 133ML RECTAL ONE (15:00)
[2017-02-24] MEDS ORDERED: KETOROLAC TROMETHAMINE 30 MG/ML (IVP) VIAL IV PUSH ONE (15:00)
[2017-02-24] MEDS ORDERED: MIRA33504 PO (15:09)
--- NOTE | 2017-02-25 10:26 | EKG ---
Date Performed: 02/24/2017 Time Performed: 14:26:07 PTAGE: 47 years EKG: SINUS BRADYCARDIA BORDERLINE ECG PREVIOUS TRACING : 02/17/2017 05.42 DOCTOR: Sam Aguayo Interpretating Date/Time 02/25/2017 10:24:35
== END 2017-02-24 15:46 | disposition home or self-care (01) ==
LOC: NEPC 13:10
DX: K59.00 Constipation, unspecified (principal); R94.31 Abnormal electrocardiogram [ECG] [EKG]; E78.00 Pure hypercholesterolemia, unspecified; K74.60 Unspecified cirrhosis of liver; F17.200 Nicotine dependence, unspecified, uncomplicated; Z98.890 Other specified postprocedural states; Z86.19 Personal history of other infectious and parasitic diseases; Z87.19 Personal history of other diseases of the digestive system; Z86.59 Personal history of other mental and behavioral disorders; Z87.39 Personal history of other diseases of the musculoskeletal system and connective tissue; Z87.09 Personal history of other diseases of the respiratory system; Z86.79 Personal history of other diseases of the circulatory system; Z86.69 Personal history of other diseases of the nervous system and sense organs
CPT/HCPCS: 74020; 80053; 81001; 83690; 85025; 85610; 85730; 93005

== ENCOUNTER 2017-03-09 12:42 | Emergency (ER) | payer OTHER ==
[~2017-03-09] VITALS: Ht 165.1 cm; Wt 63.5 kg
[~2017-03-09 12:42] MED LIST changes: +MIRA33504 PO
[2017-03-09 12:43] VITALS: BP 117/76; PULSE 90; RESP 20; TEMP 98.2; O2SAT 97
[2017-03-09] MEDS ORDERED: ZYPR20TA PO (13:39)
[2017-03-09] MEDS ORDERED: BUSP15TA PO (13:39)
== END 2017-03-09 14:01 | disposition left against medical advice (07) ==
LOC: NEPD 12:42
DX: Z53.21 Procedure and treatment not carried out due to patient leaving prior to being seen by health care provider (principal)
CPT/HCPCS: 99281

== ENCOUNTER 2017-03-14 18:26 | Emergency (ER) | payer OTHER ==
[~2017-03-14] VITALS: Ht 165.1 cm; Wt 61.4 kg
[~2017-03-14 18:26] MED LIST changes: +BUSP15TA PO; -HYDR-3516 PO; -MIRA33504 PO; +ZYPR20TA PO
[2017-03-14 18:28] VITALS: BP 108/62; PULSE 98; RESP 22; TEMP 99.1; O2SAT 94
--- NOTE | 2017-03-14 19:54 | PD ---
HPI Chief Complaint: Injury Time Seen by Provider: 19:51 Travel History International Travel<30 days: No Contact w/Intl Traveler<30days: No Traveled to known affect area: No History of Present Illness HPI 47-year-old female presents the emergency Department with right ankle pain since riding her boyfriend's call and falling. She has history of arthritis and is concerned as she is not improving with ibuprofen 800 mg 3 times daily with food. X-ray of the right ankle was ordered in triage. Patient has no other complaints or injuries. She is allergic to albuterol. PFSH Past Medical History Arthritis: Yes Asthma: Yes Blood Disorders: No Bipolar Disorder: Yes Anxiety: Yes Depression: Yes Cardiovascular Problems: Yes High Cholesterol: Yes Chemotherapy: No COPD: Yes Cerebrovascular Accident: No Diminished Hearing: No Endocrine: No Gastrointestinal Disorders: Yes Genitourinary: No Headaches: No Hepatitis: Yes (HEPATITIS C) Immune Disorder: No Implanted Vascular Access Dvce: Yes Musculoskeletal: Yes Neurologic: Yes Psychiatric: Yes (Bipolar, Schizophrenic, PTSD) Reproductive: Yes (Endometriosis) Respiratory: Yes Migraines: No Radiation Therapy: No Schizophrenia: Yes Seizures: Yes (childhood) Ulcer: Yes Tetanus Vaccination: < 5 Years Influenza Vaccination: Yes ?: Not Menopausal: Yes Past Surgical History Abdominal Surgery: Yes (Bowel Blockage; Appendix) AICD: No Appendectomy: Yes (1994) Arteriovenous Shunt: No Body Medical Devices: surgical clamps in stomach Cardiac Surgery: No Ear Surgery: No Endocrine Surgery: No Eye Surgery: No Genitourinary Surgery: No Gynecologic Surgery: Yes (Hysterectomy; Endometriosis) Hysterectomy: Yes Insulin Pump: No Joint Replacement: No Neurologic Surgery: No Oral Surgery: No Pacemaker: No Thoracic Surgery: No Other Surgery: Yes (LUMPECTOMY LEFT BREAST 2007 ) Social History Alcohol Use: Yes (rare) Tobacco Use: Yes (pack every two days) Substance Use: Yes (states used last week-meth, states hadn't used for a year ) Allergies-Medications (Allergen,Severity, Reaction): Coded Allergies: Albuterol (Verified Allergy, Severe, Hives, 03/14/17) Reported Meds & Prescriptions Reported Meds & Active Scripts Active Protonix (Pantoprazole Sodium) 20 Mg Tab 20 Mg PO DAILY Reported Zyprexa (Olanzapine) 20 Mg Tab 20 Mg PO HS Buspirone (Buspirone HCl) 15 Mg Tab 15 Mg PO TID Review of Systems Except as stated in HPI: all other systems reviewed are Neg General / Constitutional: No: Fever Eyes: No: Visual changes HENT: No: Headaches Cardiovascular: No: Chest Pain or Discomfort Respiratory: No: Shortness of Breath Gastrointestinal: No: Abdominal Pain Genitourinary: No: Dysuria Musculoskeletal: Positive: Arthralgias, Limited ROM, Pain (see history of present illness.) Skin: No Rash Neurologic: No: Weakness Psychiatric: No: Depression Endocrine: No: Polydipsia Hematologic/Lymphatic: No: Easy Bruising Physical Exam Narrative GENERAL: Patient appears in no acute distress. SKIN: Warm and dry. Normal color. Normal turgor. No obvious signs of trauma. HEAD: Atraumatic. Normocephalic. EYES: Pupils equal and round. No scleral icterus. No injection or drainage. ENT: No nasal bleeding or discharge. Mucous membranes pink and moist. NECK: Trachea midline. No JVD. CARDIOVASCULAR: Regular rate and rhythm. RESPIRATORY: No accessory muscle use. Clear to auscultation. Breath sounds equal bilaterally. MUSCULOSKELETAL: Extremities without clubbing, cyanosis, or edema. No obvious deformities. Right ankle does not appear to be significantly swollen. Patient complains of pain with motion and palpation. No other significant findings are noted. NEUROLOGICAL: Awake and alert. No obvious cranial nerve deficits. Motor grossly within normal limits. Five out of 5 muscle strength in the arms and legs. Normal speech. PSYCHIATRIC: Appropriate mood and affect; insight and judgment normal. Data Data Last Documented VS Vital Signs Date Time Temp Pulse Resp B/P Pulse Ox O2 Delivery O2 Flow Rate FiO2 03/14/17 18:28 99.1 98 22 108/62 94 Orders Ankle, Complete ([id number]) (03/14/17 18:53) [facility] Medical Decision Making Medical Screen Exam Complete: Yes Emergency Medical Condition: Yes Differential Diagnosis Right ankle sprain. Right ankle fracture. Narrative Course Patient is medically stable at time of exam. X-ray shows no acute fracture dislocation. Patient is treated with meloxicam 7.5 mg twice a day 10 days. Patient is given Tylenol 500 mg 2 tabs every 6 hours when necessary pain #60. Patient is use ice and gentle stretching and follow-up with her primary care physician as discussed. Diagnosis Primary Impression: Right ankle sprain Qualified Code: S93.401A - Sprain of right ankle, unspecified ligament, initial encounter Referrals: Primary Care Physician Patient Instructions: General Instructions Additional Instructions: X-ray shows no acute fracture dislocation. Patient is treated with meloxicam 7.5 mg twice a day 10 days. Patient is given Tylenol 500 mg 2 tabs every 6 hours when necessary pain #60. Patient is use ice and gentle stretching and follow-up with her primary care physician as discussed. Med/Other Pt SpecificInfo: Prescription(s) given Scripts Acetaminophen (Acetaminophen Extra Strength)500 Mg Cap1,000 Mg PO Q6H PRN (PAIN SCALE 4 TO 10) #60 CAP Ref 1 Prov:Bishnu Pereira MD 03/14/17 Meloxicam 7.5 Mg Tab7.5 Mg PO BID 10 Days Ref 0 Prov:Bishnu Pereira MD 03/14/17 Disposition: 01 DISCHARGE HOME Condition: Stable Jim Ruiz Mar 14, 2017 19:54
[2017-03-14] MEDS ORDERED: EXTR500C PO (19:55)
[2017-03-14] MEDS ORDERED: MELO7.5T4 PO (19:55)
--- NOTE | 2017-03-14 19:57 | RADRPT ---
EXAM DATE/TIME: 03/14/2017 18:57 [facility] COMPARISON: No previous studies available for comparison. INDICATIONS : Fall. Right ankle pain. MEDICAL HISTORY : None. SURGICAL HISTORY : None. ENCOUNTER: Initial ACUITY: 1 day PAIN SCORE: 6/10 LOCATION: Right lateral FINDINGS: Three view exam was performed of the right ankle. The bony structures are in normal alignment. No e vidence of fracture, dislocation, or soft tissue swelling. The ankle mortise is intact. No radiopaq ue foreign bodies are seen. Bony mineralization is normal. CONCLUSION: No evidence of recent bone injury. Jey Romero MD on March 14, 2017 at 19:54 Board Certified Radiologist. This report was verified electronically.
== END 2017-03-14 20:25 | disposition home or self-care (01) ==
LOC: NEPK 18:26
DX: S93.401A Sprain of unspecified ligament of right ankle, initial encounter (principal); E78.00 Pure hypercholesterolemia, unspecified; J44.9 Chronic obstructive pulmonary disease, unspecified; B19.20 Unspecified viral hepatitis C without hepatic coma; F31.9 Bipolar disorder, unspecified; F41.8 Other specified anxiety disorders; W01.0XXA Fall on same level from slipping, tripping and stumbling without subsequent striking against object, initial encounter; Y93.9 Activity, unspecified; Y92.814 Boat as the place of occurrence of the external cause; Y99.9 Unspecified external cause status
CPT/HCPCS: 73610; 99283

== ENCOUNTER 2017-05-14 09:22 | Emergency (ER) | payer OTHER ==
[~2017-05-14] VITALS: Ht 165.1 cm; Wt 61.0 kg
[~2017-05-14 09:22] MED LIST changes: +EXTR500C PO; +MELO7.5T4 PO
[2017-05-14 09:24] VITALS: BP 105/57; PULSE 77; RESP 16; TEMP 98.6; O2SAT 97
[2017-05-14] MEDS ORDERED: LORazepam 2 MG/ML VIAL IM ONE (09:45)
[2017-05-14] MEDS ORDERED: KETOROLAC TROMETHAMINE 60 MG/2 ML (IM) VIAL IM ONE (09:45)
--- NOTE | 2017-05-14 10:23 | PD ---
HPI . Pain and swelling of the right leg Chief Complaint: Edema Time Seen by Provider: 09:40 Travel History International Travel<30 days: No Contact w/Intl Traveler<30days: No Traveled to known affect area: No History of Present Illness HPI Patient presents with chief complaint of a swollen right lower extremity. Symptoms present for about a month. Symptoms are getting progressively worse. Symptoms are exacerbated by walking. Pain is rated at 10/10. The patient is homeless and has not tried any [id number] treatment. Patient states that she suffered a right ankle sprain in February. She states that her symptoms initially improved but that she then started having pain and swelling of her right lower leg about a month ago. 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 to the bin operator) COPD: Yes Cerebrovascular Accident: No Diminished Hearing: No Endocrine: No Gastrointestinal Disorders: Yes Genitourinary: No Headaches: No Hepatitis: Yes (HEPATITIS C) Immune Disorder: No Implanted Vascular Access Dvce: Yes Musculoskeletal: Yes Neurologic: Yes Psychiatric: Yes (Bipolar, Schizophrenic, PTSD) Reproductive: Yes (Endometriosis) Respiratory: Yes (copd) Migraines: No Radiation Therapy: No Schizophrenia: Yes Seizures: Yes (childhood) Ulcer: Yes ?: Not Menopausal: Yes Past Surgical History Abdominal Surgery: Yes (Bowel Blockage; Appendix) AICD: No Appendectomy: Yes (1994) Arteriovenous Shunt: No Body Medical Devices: surgical clamps in stomach Cardiac Surgery: No Ear Surgery: No Endocrine Surgery: No Eye Surgery: No Genitourinary Surgery: No Gynecologic Surgery: Yes (Hysterectomy; Endometriosis) Hysterectomy: Yes Insulin Pump: No Joint Replacement: No Neurologic Surgery: No Oral Surgery: No Pacemaker: No Thoracic Surgery: No Other Surgery: Yes (LUMPECTOMY LEFT BREAST 2007 ) Social History Alcohol Use: Yes Tobacco Use: Yes Substance Use: No Allergies-Medications (Allergen,Severity, Reaction): Coded Allergies: Albuterol (Verified Allergy, Severe, Hives, 05/14/17) Reported Meds & Prescriptions Reported Meds & Active Scripts Active Meloxicam 7.5 Mg Tab 7.5 Mg PO BID 10 Days Reported Zyprexa (Olanzapine) 20 Mg Tab 20 Mg PO HS Review of Systems Except as stated in HPI: all other systems reviewed are Neg Musculoskeletal: Positive: Arthralgias (right lower leg right ankle), Edema ( right lower leg), Pain Physical Exam Narrative GENERAL: Awake and alert. Patient is tearful and is talking in a very quiet voice. This makes her very difficult to understand. SKIN: Warm and dry. HEAD: Atraumatic. Normocephalic. EYES: Pupils equal and round. Extraocular movements are intact. NECK: Trachea midline. Neck is supple. CARDIOVASCULAR: Regular rate and rhythm. RESPIRATORY: No accessory muscle use. MUSCULOSKELETAL: She has a visibly swollen right lower extremity. She is tender in the ankle. She does have full and equal distal pulses. NEUROLOGICAL: Awake and alert. No obvious cranial nerve deficits. Motor grossly within normal limits. Normal speech. PSYCHIATRIC: Patient is unusually tearful and anxious appearing. Data Data Last Documented VS Vital Signs Date Time Temp Pulse Resp B/P Pulse Ox O2 Delivery O2 Flow Rate FiO2 05/14/17 09:24 98.6 77 16 105/57 97 Orders Us Leg Venous Doppler (05/14/17 09:42) Ankle, Complete ([id number]) (05/14/17 09:42) Ketorolac Inj (Toradol Inj) (05/14/17 09:45) Lorazepam Inj (Ativan Inj) (05/14/17 09:45) MDM Medical Decision Making Medical Screen Exam Complete: Yes Emergency Medical Condition: Yes Differential Diagnosis Differential diagnosis of leg pain includes but is not limited to lumbar radiculopathy, arthritis, myalgias, DVT. Narrative Course Patient presents for evaluation and treatment of pain and swelling of her right lower leg. Plain films of the ankle were obtained on March 14 and will not be repeated here today. She hasn't had an injury since she was seen here on that date. She does have visible swelling of the right lower extremity so an ultrasound will be done to rule out DVT. In the meantime, her pain treated IM Toradol. Her obvious anxiety will be treated with IM Ativan. Last Impressions Lower Extremity Ultrasound 05/14/17941 Signed Impressions: Service Date/Time: April 10:12 - CONCLUSION: 1. No DVT identified. Derik Holcomb MD Ankle X-Ray 05/14/17941 Signed Impressions: Service Date/Time: April 10:11 - CONCLUSION: 1. Soft tissue swelling at the right ankle. No acute bony abnormality. Adan Matta MD The plain films were independently viewed by me. The history, exam, diagnostic testing, and current condition do not suggest any significant pathology to warrant further testing, continued ED treatment, admission, or surgical evaluation at this point. The patient's condition is stable and appropriate for discharge. She will be discharged with a prescription for Naprosyn. Diagnosis Primary Impression: Swelling of right lower extremity Additional Impression: Right ankle pain Qualified Code: M25.571 - Chronic pain of right ankle Patient Instructions: General Instructions, Leg Pain (ED) Med/Other Pt SpecificInfo: Prescription(s) given Scripts Naproxen (Naprosyn)500 Mg Vas800 Mg PO BID #60 TAB Ref 0 Prov:Loraine Gibbs MD 05/14/17 Disposition: 01 DISCHARGE HOME Condition: Stable Loraine Gibbs MD May 14, 2017 10:23
--- NOTE | 2017-05-14 10:34 | RADRPT ---
EXAM DATE/TIME: 05/14/2017 10:11 [facility] COMPARISON: ANKLE RIGHT COMPLETE ([id number]), March 14, 2017, 18:57. INDICATIONS : Right ankle pain, fall. MEDICAL HISTORY : None. SURGICAL HISTORY : None. ENCOUNTER: Initial ACUITY: 2 months PAIN SCORE: 10/10 LOCATION: Right lateral ankle FINDINGS: Three view exam was performed of the right ankle. The bony structures are in normal alignment. No e vidence of fracture, dislocation. Soft tissue swelling is present. The ankle mortise is intact. No radiopaque foreign bodies are seen. Bony mineralization is normal. CONCLUSION: 1. Soft tissue swelling at the right ankle. No acute bony abnormality. Adan Matta MD on May 14, 2017 at 10:28 Board Certified Radiologist. This report was verified electronically.
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
[2017-05-14 10:54] VITALS: RESP 16
[2017-05-14] MEDS ORDERED: NAPR500 PO (10:56)
== END 2017-05-14 11:14 | disposition home or self-care (01) ==
LOC: NEPD 09:22
DX: M79.89 Other specified soft tissue disorders (principal); M25.571 Pain in right ankle and joints of right foot; Z72.0 Tobacco use; Z59.0 Homelessness
CPT/HCPCS: 73610; 93971; 96372; 99285; J1885; J2060

== ENCOUNTER 2017-06-19 14:21 | Emergency (ER) | payer OTHER ==
[~2017-06-19] VITALS: Ht 165.1 cm; Wt 59.0 kg
[~2017-06-19 14:21] MED LIST changes: -BUSP15TA PO; -EXTR500C PO; +NAPR500 PO; -PANT20 PO
[2017-06-19 15:00] VITALS: BP 100/57; PULSE 78; RESP 20; O2SAT 99
[2017-06-19] MEDS ORDERED: BUSP15TA PO (16:27)
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
== END 2017-06-19 19:00 | disposition left against medical advice (07) ==
LOC: NEPC 14:21 → NEPF 19:00
DX: Z02.89 Encounter for other administrative examinations (principal); T76.21XA Adult sexual abuse, suspected, initial encounter
CPT/HCPCS: 99281

== ENCOUNTER 2017-06-19 23:34 | Emergency (ER) | payer OTHER ==
[~2017-06-19] VITALS: Ht 165.1 cm; Wt 59.0 kg
[~2017-06-19 23:34] MED LIST changes: +BUSP15TA PO
[2017-06-19 23:35] VITALS: BP 116/66; PULSE 70; RESP 16; TEMP 97.7; O2SAT 98
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
[2017-06-20] MEDS ORDERED: ONDANSETRON ODT 4 MG TAB PO ONE (01:45)
[2017-06-20 01:59] LABS: AUTOMATED NEUTROPHIL # 2.8 TH/MM3 (1.8-7.7); BASOPHIL # 0.1 TH/MM3 (0-0.2); BASOPHIL % 0.9 % (0.0-2.0); EOSINOPHIL # 0.2 TH/MM3 (0-0.4); EOSINOPHIL % 3.3 % (0.0-4.0); HEMATOCRIT 36.3 % (35.0-46.0); HEMO FLAGS DIFF FINAL; LYMPH % 42.5 % (9.0-44.0); LYMPHOCYTE # 2.9 TH/MM3 (1.0-4.8); MEAN CELL VOLUME 92.8 FL (80.0-100.0); MEAN CORPUSCULAR HEMOGLOBIN 32.2 PG (27.0-34.0); MEAN CORPUSCULAR HGB CONC 34.7 % (32.0-36.0); MONO % 11.3 % (0.0-8.0); PLATELET COUNT 212 TH/MM3 (150-450); RED BLOOD COUNT 3.91 MIL/MM3 (4.00-5.30); RED CELL DISTRIBUTION WIDTH 14.3 % (11.6-17.2); WHITE BLOOD COUNT 6.7 TH/MM3 (4.0-11.0)
[2017-06-20 02:13] LABS: AMPHETAMINE, URINE POS (NEG); BARBITURATES, URINE NEG (NEG); COCAINE, URINE NEG (NEG)
[2017-06-20 02:18] LABS: ANION GAP 5 MEQ/L (5-15); BICARBONATE 29.3 MEQ/L (21.0-32.0); BLOOD UREA NITROGEN 15 MG/DL (7-18); CHLORIDE 106 MEQ/L (98-107); GLOMERULAR FILTRATION RATE 92 ML/MIN (>89); POTASSIUM 3.7 MEQ/L (3.5-5.1); SODIUM (NA) 140 MEQ/L (136-145)
[2017-06-20 09:00] VITALS: BP 105/53; PULSE 83; RESP 17; O2SAT 97
[2017-06-20 13:27] VITALS: BP 113/56; PULSE 80; RESP 18; O2SAT 97
[2017-06-20 22:10] VITALS: BP 103/50; PULSE 61; RESP 18; O2SAT 98
[2017-06-21 01:57] VITALS: RESP 18
[2017-06-21 06:17] VITALS: BP 104/56; PULSE 66; RESP 20; O2SAT 99
[2017-06-21 09:56] VITALS: BP 95/55; PULSE 88; RESP 18
== END 2017-06-21 12:30 | disposition home or self-care (01) ==
LOC: NEPD 23:34 → NEPJ 06-21 12:30
DX: F43.25 Adjustment disorder with mixed disturbance of emotions and conduct (principal); E78.00 Pure hypercholesterolemia, unspecified; F17.200 Nicotine dependence, unspecified, uncomplicated; Z79.899 Other long term (current) drug therapy; Z87.39 Personal history of other diseases of the musculoskeletal system and connective tissue; Z87.09 Personal history of other diseases of the respiratory system; Z86.59 Personal history of other mental and behavioral disorders; Z86.79 Personal history of other diseases of the circulatory system; Z87.19 Personal history of other diseases of the digestive system; Z86.69 Personal history of other diseases of the nervous system and sense organs; Z87.42 Personal history of other diseases of the female genital tract
CPT/HCPCS: 80048; 80307; 85025; 99283

== ENCOUNTER 2018-08-25 22:50 | Inpatient (IN) ==
[2018-08-25] MEDS ORDERED: Ketorolac Inj 30 MG/ML (IVP) Vial IV.PUSH ONE (23:06)
--- NOTE | 2018-08-25 23:14 | ED ---
HPI General Chief Complaint: Abdominal Pain Stated Complaint: abdominal pain Time Seen by Provider: 08/25/18 22:54 Source: patient Mode of arrival: EMS Limitations: no limitations History of Present Illness HPI narrative: 48-year-old female complains of abdominal pain. Patient states that the abdominal pain started today. Patient stated pain cramping pain diffuse of the abdomen. Patient denies any pain radiation. Patient states that she vomited twice a day. Patient states that she has a small amount of drainage from the surgical scar on the lower abdomen today also. Patient status post abdominal surgery for bowel obstruction in the past. Patient denies any fever chills. Patient denies any headache. Patient denies any chest pain or shortness of breath. Patient denies any dysuria or frequency. Patient denies any vaginal discharge or bleeding. Patient status post hysterectomy in the past. Patient has history of cervical cancer, hyperlipidemia, hepatitis C. patient also has history of schizophrenia and on medication for that. MD complaint: Reports abdominal pain Onset (ago): hour(s) Pain Consistency: constant Location: Reports diffuse Severity: moderate Severity scale (1-10): 5 Quality: Reports cramping and sharp Radiation: Reports none Migration to: Reports no migration Relieving factors: nothing Exacerbating factors: nothing Associated symptoms: Reports nausea and vomiting Related Data Home Medications Medication Instructions Recorded Confirmed buspirone 15 mg PO TID 08/25/18 08/25/18 olanzapine [Zyprexa] 20 mg PO HS 08/25/18 08/25/18 Previous Rx's Medication Instructions Recorded ibuprofen 400 mg PO Q8H PRN #20 tab 07/26/18 Allergies Allergy/AdvReac Type Severity Reaction Status Date / Time albuterol Allergy Severe Hives Verified 08/25/18 22:59 Review of Systems ROS: all other systems reviewed are negative PMFSH History History Provided By: Patient Medical History Medical History Bowel obstruction (Acute) Endometriosis (Acute) H/O: hysterectomy (Acute) Hepatitis C (Acute) Hx of cervical cancer (Acute) Hypercholesteremia (Acute) Hypotension (Acute) Schizophrenia (Acute) Social History Social History Substance History: Active Abuse Second Hand Smoke Exposure: Yes Smoking Status: Current every day smoker Tobacco Type: Cigarettes How Often Do You Have a Drink Containing Alcohol: Never Recent Travel in [facility] within the Last 8 Weeks: No Recent Out of Country Travel within the Last 8 Weeks: No Exam Narrative Exam Narrative: GENERAL: Well-nourished, well-developed patient. SKIN: Focused skin assessment warm/dry. HEAD: Normocephalic. EYES: No scleral icterus. No injection or drainage. NECK: Supple, trachea midline. No JVD or lymphadenopathy. CARDIOVASCULAR: Regular rate and rhythm without murmurs, gallops, or rubs. RESPIRATORY: Breath sounds equal bilaterally. No accessory muscle use. GASTROINTESTINAL: Abdomen soft, nondistended. Patient has mild diffuse tenderness of the abdomen. Patient has a small ulcer lesion on the inferior aspect of the lower abdomen scar. No redness no heat noted. A small drainage noted. MUSCULOSKELETAL: No cyanosis, or edema. BACK: Nontender without obvious deformity. No CVA tenderness. Course Initial Documented Vital Signs Temperature 99.0 F 08/25/18 23:00 Pulse Rate 99 H 08/25/18 23:00 Respiratory Rate 22 08/25/18 23:00 Blood Pressure 114/69 08/25/18 23:00 Pulse Oximetry 97 08/25/18 23:00 Last Documented Vital Signs Temperature 99.0 F 08/25/18 23:15 Pulse Rate 96 H 08/26/18 00:45 Respiratory Rate 18 08/26/18 00:45 Blood Pressure 88/41 L 08/26/18 00:45 Pulse Oximetry 96 08/26/18 00:45 Medical Decision Making MDM Narrative Medical decision making narrative: 48-year-old female complains abdominal pain, nausea vomiting and drainage from surgical scar. Normal saline solution 125 cc an hour. Zofran 4 mg IV. Toradol 30 mg IV. Medical Screen Exam Complete: Yes Emergency Medical Condition: Yes Lab Data Lab results reviewed: Yes I reviewed the patient's lab results. Result diagrams: 08/25/18 23:10 08/25/18 23:10 Lab Results 08/25/18 08/25/18 08/25/18 Range/Units 23:10 23:10 23:10 WBC 10.0 (4.0-11.0) th/mm3 RBC 3.81 L (4.00-5.30) mil/mm3 Hgb 12.3 (11.6-15.3) gm/dL Hct 35.8 (35.0-46.0) % MCV 94.0 (80.0-100.0) fL MCH 32.4 (27.0-34.0) pg MCHC 34.5 (32.0-36.0) % RDW 14.8 (11.6-17.2) % Plt Count 229 (150-450) th/mm3 MPV 7.2 (7.0-11.0) fL Neut % (Auto) 61.4 (16.0-70.0) % Lymph % (Auto) 26.5 (9.0-44.0) % [place] % (Auto) 8.4 H (0.0-8.0) % Eos % (Auto) 2.0 (0.0-4.0) % Baso % (Auto) 1.7 (0.0-2.0) % Neut # (Auto) 6.1 (1.8-7.7) th/mm3 Lymph # (Auto) 2.6 (1.0-4.8) th/mm3 [place] # (Auto) 0.8 (0.0-0.9) th/mm3 Eos # (Auto) 0.2 (0.0-0.4) th/mm3 Baso # (Auto) 0.2 (0.0-0.2) th/mm3 WBC Differential . Differential Comment Auto diff final PT 9.5 L (9.8-11.6) sec INR 0.9 Ratio APTT 25.4 (24.3-30.1) sec Sodium 143 (136-145) meq/L Potassium 4.2 (3.5-5.1) meq/L Chloride 103 (98-107) meq/L Carbon Dioxide 34.8 H (21.0-32.0) meq/L Anion Gap 5 (5-15) meq/L BUN 14 (7-18) mg/dL Creatinine 0.76 (0.50-1.00) mg/dL Estimated GFR 81 L (>89) mL/min Random Glucose 88 (74-106) mg/dL Calcium 9.2 (8.5-10.1) mg/dL Total Bilirubin 0.2 (0.2-1.0) mg/dL AST 47 H (15-37) U/L ALT 48 (10-53) U/L Alkaline Phosphatase 129 H (45-117) U/L Total Protein 7.9 (6.4-8.2) g/dL Albumin 3.1 L (3.4-5.0) g/dL Lipase 85 (73-393) U/L Urine Color (Yellw/Straw) Urine Clarity (Clear) Urine pH (5.0-8.5) Ur Specific Kimberly (1.002-1.035) Urine Protein (Neg-Trace) mg/dL Urine Glucose (UA) (Negative) mg/dL Urine Ketones (Negative) mg/dL Urine Occult Blood (Negative) Urine Nitrate (Negative) Urine Bilirubin (Negative) Urine Urobilinogen (Less than 2) mg/dL Ur Leukocyte Esterase (Negative) Urine RBC (0-3) /hpf Urine WBC (0-5) /hpf Ur Squamous Epith Cells (0-5) /hpf Amorphous Sediment (None) /hpf Urine Bacteria (None) /hpf Micro UA Comment Ur Microscopic Review Urine Culture Comments 08/25/18 Range/Units 23:33 WBC (4.0-11.0) th/mm3 RBC (4.00-5.30) mil/mm3 Hgb (11.6-15.3) gm/dL Hct (35.0-46.0) % MCV (80.0-100.0) fL MCH (27.0-34.0) pg MCHC (32.0-36.0) % RDW (11.6-17.2) % Plt Count (150-450) th/mm3 MPV (7.0-11.0) fL Neut % (Auto) (16.0-70.0) % Lymph % (Auto) (9.0-44.0) % [place] % (Auto) (0.0-8.0) % Eos % (Auto) (0.0-4.0) % Baso % (Auto) (0.0-2.0) % Neut # (Auto) (1.8-7.7) th/mm3 Lymph # (Auto) (1.0-4.8) th/mm3 [place] # (Auto) (0.0-0.9) th/mm3 Eos # (Auto) (0.0-0.4) th/mm3 Baso # (Auto) (0.0-0.2) th/mm3 WBC Differential Differential Comment PT (9.8-11.6) sec INR Ratio APTT (24.3-30.1) sec Sodium (136-145) meq/L Potassium (3.5-5.1) meq/L Chloride (98-107) meq/L Carbon Dioxide (21.0-32.0) meq/L Anion Gap (5-15) meq/L BUN (7-18) mg/dL Creatinine (0.50-1.00) mg/dL Estimated GFR (>89) mL/min Random Glucose (74-106) mg/dL Calcium (8.5-10.1) mg/dL Total Bilirubin (0.2-1.0) mg/dL AST (15-37) U/L ALT (10-53) U/L Alkaline Phosphatase (45-117) U/L Total Protein (6.4-8.2) g/dL Albumin (3.4-5.0) g/dL Lipase (73-393) U/L Urine Color Yellow (Yellw/Straw) Urine Clarity Turbid H (Clear) Urine pH 7.0 (5.0-8.5) Ur Specific Kimberly 1.016 (1.002-1.035) Urine Protein Negative (Neg-Trace) mg/dL Urine Glucose (UA) Negative (Negative) mg/dL Urine Ketones Negative (Negative) mg/dL Urine Occult Blood Negative (Negative) Urine Nitrate Negative (Negative) Urine Bilirubin Negative (Negative) Urine Urobilinogen Less than 2 (Less than 2) mg/dL Ur Leukocyte Esterase Trace H (Negative) Urine RBC 2 (0-3) /hpf Urine WBC 5 (0-5) /hpf Ur Squamous Epith Cells 3 (0-5) /hpf Amorphous Sediment Moderate H (None) /hpf Urine Bacteria Occasional H (None) /hpf Micro UA Comment Culture not ind Ur Microscopic Review Not Reportable Urine Culture Comments Culture not ind Imaging Data Radiologist's impression: Abdomen/Pelvis CT 08/26/18 00:22 CONCLUSION: 1. Findings consistent with small bowel obstruction, primarily involving ileal loops in the mid to lower right abdomen. There are decompressed proximal and distal small bowel loops without a focal transition point. Overall appearance is similar to prior CT examination of 02/17/2017. 2. Mild prominence of the renal collecting systems and proximal ureters bilaterally. Suspect this is reactive in etiology. 3. Hepatomegaly with redemonstration of splenorenal collaterals. Portal vein is patent. Discharge Plan Discharge Disposition Patient Disposition: 30 Still Patient Discharge Details Diagnosis: Small bowel obstruction Physicians Team ED Provider: Hipolito Haynes Primary Care Provider: Primary Care Asia Gunn Rxs /Orders / Referrals /Forms Prescriptions: No Action ibuprofen 200 mg tablet 400 mg PO Q8H PRN (Reason: pain) Qty: 20 RF: 0 olanzapine [Zyprexa] 20 mg Tablet 20 mg PO HS RF: 0 buspirone 15 mg Tablet 15 mg PO TID RF: 0 Status ED Status: With Doctor
[2018-08-25] MEDS ORDERED: Sod Chloride 0.9% Inj 1,000 ML IV.CONT SCH (23:15)
[2018-08-25 23:23] LABS: Baso # (Auto) 0.2 th/mm3 (0.0-0.2); Baso % (Auto) 1.7 % (0.0-2.0); Eos # (Auto) 0.2 th/mm3 (0.0-0.4); Hematocrit 35.8 % (35.0-46.0); Hemoglobin 12.3 gm/dL (11.6-15.3); Lymph # (Auto) 2.6 th/mm3 (1.0-4.8); Lymph % (Auto) 26.5 % (9.0-44.0); Mean Corpuscular HGB Conc 34.5 % (32.0-36.0); Mean Corpuscular Hemoglobin 32.4 pg (27.0-34.0); Mean Platelet Volume 7.2 fL (7.0-11.0); Mono # (Auto) 0.8 th/mm3 (0.0-0.9); Mono % (Auto) 8.4 % (0.0-8.0); Neut # (Auto) 6.1 th/mm3 (1.8-7.7); Neut % (Auto) 61.4 % (16.0-70.0); Platelet Count 229 th/mm3 (150-450); Red Blood Count 3.81 mil/mm3 (4.00-5.30); Red Cell Distribution Width 14.8 % (11.6-17.2)
[2018-08-25 23:29] LABS: Activated Partial Thrombo Time 25.4 sec (24.3-30.1); INR 0.9 Ratio; Prothrombin Time 9.5 sec (9.8-11.6)
[2018-08-25 23:41] LABS: Alkaline Phosphatase 129 U/L (45-117); Total Protein 7.9 g/dL (6.4-8.2)
[2018-08-25 23:45] LABS: Alanine Aminotransferase 48 U/L (10-53); Albumin 3.1 g/dL (3.4-5.0); Anion Gap 5 meq/L (5-15); Aspartate Aminotransferase 47 U/L (15-37); Blood Urea Nitrogen 14 mg/dL (7-18); Calcium 9.2 mg/dL (8.5-10.1); Carbon Dioxide 34.8 meq/L (21.0-32.0); Chloride 103 meq/L (98-107); Glomerular Filtration Rate 81 mL/min (>89); Glucose,Random 88 mg/dL (74-106); Lipase 85 U/L (73-393); Sodium 143 meq/L (136-145)
[2018-08-25 23:46] LABS: Potassium 4.2 meq/L (3.5-5.1)
[2018-08-25 23:51] LABS: Amorphous Sediment,Urine Moderate /hpf; Bacteria,Urine Occasional /hpf; Bilirubin,Urine Negative (Negative); Clarity,Urine Turbid (Clear); Color,Urine Yellow (Yellw/Straw); Glucose,Urine (UA) Negative (Negative); Leukocyte Esterase,Urine Trace (Negative); Nitrite,Urine Negative (Negative); Specific Gravity,Urine 1.016 (1.002-1.035); Squamous Epithelial Cell,Urine 3 /hpf (0-5)
--- NOTE | 2018-08-26 01:16 | CT ---
EXAM DATE: 08/26/2018 12:22 AM EDT AGE/SEX: 48 years / Female INDICATIONS: Diffuse abdominal pain with nausea and vomiting. CLINICAL DATA: This is the patient's initial encounter. Patient reports that signs and symptoms have been present for 1 day and indicates a pain score of 8/10. MEDICAL/SURGICAL HISTORY: Hepatitis C. Carcinoma, cervical. Bowel obstruction. Hysterectomy. ORAL CONTRAST: No oral contrast ingested. RADIATION DOSE: 6.64 CTDI (mGy) COMPARISON: [facility] [place], CT ABDOMEN & PELVIS W CONTRAST, 07/26/2018. . TECHNIQUE: Multiple contiguous axial images were obtained through the abdomen and pelvis following b olus infusion of 95 ml Omnipaque 350 (iohexol) nonionic water-soluble contrast as a single exam dos e. No oral contrast ingested. Using automated exposure control and adjustment of the mA and/or kV ac cording to patient size, radiation dose was kept as low as reasonably achievable to obtain optimal di agnostic quality images. DICOM format image data is available electronically for review and comparis on. FINDINGS: LOWER LUNGS: The visualized lower lungs are clear. LIVER: Liver is enlarged without focal hepatic lesion or intrahepatic ductal dilatation. No calcifie d gallstones. Portal vein is patent. SPLEEN: Homogeneous density without enlargement. Redemonstration of probable splenorenal collaterals . PANCREAS: Unremarkable without mass or calcification. KIDNEYS: Mild prominence of the renal collecting systems bilaterally and mild prominence of the prox imal ureters. No radiopaque renal calculi. Kidneys otherwise demonstrate symmetrical enhancement. ADRENAL GLANDS: Unremarkable. AORTA: Scarlett-aneurysmal. BOWEL/MESENTERY: Abnormal. Multiple dilated fluid-filled loops of ileum in the mid and right abdomen . There is no focal transition point with loops of nondistended jejunum more proximally. There are se veral loops of relatively decompressed distal ileum in the right lower quadrant but a definite transi tion point is not identified. There is fecalization noted in the distal dilated ileal loops. There is no pneumatosis. There is no free air. Air and stool seen throughout the colon extending to the rectu m. ABDOMINAL WALL: Intact. RETROPERITONEUM: No evidence of adenopathy in the retrocrural, para-aortic, or deep pelvic regions. BLADDER: Contours are smooth. REPRODUCTIVE: Uterus is surgically absent. BONY STRUCTURES: Unremarkable. CONCLUSION: 1. Findings consistent with small bowel obstruction, primarily involving ileal loops in the mid to l ower right abdomen. There are decompressed proximal and distal small bowel loops without a focal rivera sition point. Overall appearance is similar to prior CT examination of 02/17/2017. 2. Mild prominence of the renal collecting systems and proximal ureters bilaterally. Suspect this is reactive in etiology. 3. Hepatomegaly with redemonstration of splenorenal collaterals. Portal vein is patent. Electronically signed by: Gordo Diego MD 08/26/2018 1:14 AM EDT
[2018-08-26] MEDS: Sod Chloride 0.9% Inj 1,000 ML IV.CONT SCH ×2 (02:08→16:28)
--- NOTE | 2018-08-26 02:14 | P.HP ---
History of Present Illness Service: [facility] Primary Care Physician: No Primary Care Physician History of Present Illness: 48-year-old female with past medical history significant for history of small bowel obstruction, endometriosis, COPD and hepatitis C presents the emergency department for evaluation of abdominal pain, nausea and vomiting that started last night. The patient reports 3 episodes of emesis since that time. She endorses accompanying chills but denies fevers. No chest pain. No shortness of breath. Last bowel movement was yesterday. She complains of diffuse, crampy abdominal pain that is 10/10. Review of Systems All other systems reviewed negative except as stated in HPI PMFSH - History History Provided By: Patient - Medical History Medical History: Medical History (Last Reviewed 08/26/18 @ 02:12 by Annette Giordano MD) Bowel obstruction Endometriosis H/O: hysterectomy Hepatitis C Hx of cervical cancer Hypercholesteremia Hypotension Schizophrenia - Surgical History Surgical History: Surgical History (Last Updated 08/26/18 @ 02:12 by Annette Giordano MD) Status post small bowel resection - Family History Family History: Family History (Last Updated 08/26/18 @ 02:12 by Annette Giordano MD) Other Coronary artery disease - Tobacco History Second Hand Smoke Exposure: Yes Tobacco Use In Past 30 Days: Yes Smoking Status: Current every day smoker Tobacco Type: Cigarettes - Alcohol History How Often Do You Have a Drink Containing Alcohol: Never - Substance Use History Substance History: Active Abuse - Substance Use Type Methamphetamine Status: Active Route Used: Intravenously Reason for Use: Feels Good, Get High - Travel History Recent Travel in the [place] Within the Last 8 Weeks: No Recent Travel Out of the Country Within the Last 8 Weeks: No - Immunization History Tetanus Immunization: >5 Years Hx Influenza Vaccine This Season: No Medications and Allergies Active Medications: Active Medications Sodium Chloride (Ns Inj) 1,000 mls @ 70 mls/hr IV.CONT .[id number] [facility] Last Admin: 08/26/18 02:08 Dose: 70 mls/hr Morphine Sulfate (Morphine Inj) 2 mg IV.PUSH Q4H PRN PRN Reason: PAIN 6-10;IF UNABLE TO TAKE PO Ondansetron HCl (Zofran Inj) 4 mg IV.PUSH Q6H PRN PRN Reason: NAUSEA OR VOMITING Allergies Allergy/AdvReac Type Severity Reaction Status Date / Time albuterol Allergy Severe Hives Verified 08/25/18 22:59 Home Medications Medication Instructions Recorded Confirmed Type buspirone 15 mg PO TID 08/25/18 08/25/18 History olanzapine [Zyprexa] 20 mg PO HS 08/25/18 08/25/18 History Exam Vital signs: Vital Signs 08/25/18 23:00 08/25/18 23:15 08/26/18 00:45 Temperature 99.0 F 99.0 F Pulse Rate 99 H 96 H 96 H Respiratory Rate Blood Pressure 114/69 114/69 88/41 L Pulse Oximetry 97 98 96 Intake & Output 08/25/18 08/25/18 08/26/18 06:59 18:59 06:59 Weight 54.431 kg Narrative: Gen.: No acute distress Head: Normocephalic. Atraumatic. EENT: Pupils equal round and reactive to light. Nose without drainage. Airway intact. Throat without injection. Cardiovascular: Regular rate and rhythm. No murmurs, rubs or gallops. Respiratory: Lungs clear to auscultation bilaterally. No wheezes or rhonchi. Abdomen: Soft, nondistended. No peritoneal signs. Mild diffuse tenderness. Musculoskeletal: No gross deformities. No edema. Skin: No obvious rashes or erythema. Neuro: Sensory and motor grossly intact. Cranial nerves II through XII grossly intact. Results - Labs CBC & Chem 7: 08/25/18 23:10 08/25/18 23:10 Labs: Laboratory Results - last 24 hr 08/25/18 08/25/18 08/25/18 23:10 23:10 23:10 WBC 10.0 RBC 3.81 L Hgb 12.3 Hct 35.8 MCV 94.0 MCH 32.4 MCHC 34.5 RDW 14.8 Plt Count 229 MPV 7.2 Neut % (Auto) 61.4 Lymph % (Auto) 26.5 [place] % (Auto) 8.4 H Eos % (Auto) 2.0 Baso % (Auto) 1.7 Neut # (Auto) 6.1 Lymph # (Auto) 2.6 [place] # (Auto) 0.8 Eos # (Auto) 0.2 Baso # (Auto) 0.2 WBC Differential . Differential Comment Auto diff final PT 9.5 L INR 0.9 APTT 25.4 Sodium 143 Potassium 4.2 Chloride 103 Carbon Dioxide 34.8 H Anion Gap 5 BUN 14 Creatinine 0.76 Estimated GFR 81 L Random Glucose 88 Calcium 9.2 Total Bilirubin 0.2 AST 47 H ALT 48 Alkaline Phosphatase 129 H Total Protein 7.9 Albumin 3.1 L Lipase 85 Urine Color Urine Clarity Urine pH Ur Specific [place] Urine Protein Urine Glucose (UA) Urine Ketones Urine Occult Blood Urine Nitrate Urine Bilirubin Urine Urobilinogen Ur Leukocyte Esterase Urine RBC Urine WBC Ur Squamous Epith Cells Amorphous Sediment Urine Bacteria Micro UA Comment Ur Microscopic Review Urine Culture Comments 08/25/18 23:33 WBC RBC Hgb Hct MCV MCH MCHC RDW Plt Count MPV Neut % (Auto) Lymph % (Auto) [place] % (Auto) Eos % (Auto) Baso % (Auto) Neut # (Auto) Lymph # (Auto) [place] # (Auto) Eos # (Auto) Baso # (Auto) WBC Differential Differential Comment PT INR APTT Sodium Potassium Chloride Carbon Dioxide Anion Gap BUN Creatinine Estimated GFR Random Glucose Calcium Total Bilirubin AST ALT Alkaline Phosphatase Total Protein Albumin Lipase Urine Color Yellow Urine Clarity Turbid H Urine pH 7.0 Ur Specific [place] 1.016 Urine Protein Negative Urine Glucose (UA) Negative Urine Ketones Negative Urine Occult Blood Negative Urine Nitrate Negative Urine Bilirubin Negative Urine Urobilinogen Less than 2 Ur Leukocyte Esterase Trace H Urine RBC 2 Urine WBC 5 Ur Squamous Epith Cells 3 Amorphous Sediment Moderate H Urine Bacteria Occasional H Micro UA Comment Culture not ind Ur Microscopic Review Not Reportable Urine Culture Comments Culture not ind - Imaging Impressions Abdomen/Pelvis CT 08/26/18 00:22 CONCLUSION: 1. Findings consistent with small bowel obstruction, primarily involving ileal loops in the mid to lower right abdomen. There are decompressed proximal and distal small bowel loops without a focal transition point. Overall appearance is similar to prior CT examination of 02/17/2017. 2. Mild prominence of the renal collecting systems and proximal ureters bilaterally. Suspect this is reactive in etiology. 3. Hepatomegaly with redemonstration of splenorenal collaterals. Portal vein is patent. Caprini VTE Risk Assessment Caprini VTE Risk Assessment: No/Low Risk (score <= 1) Caprini Risk Assessment Model: Point Value = 1 Point Value = 2 Point Value = 3 Point Value = 5 Age 41-60 Minor surgery BMI > 25 kg/m2 Swollen legs Varicose veins or History of unexplained or recurrent spontaneous Oral contraceptives or hormone replacement Sepsis (< 1 month) Serious lung disease, including pneumonia (< 1 month) Abnormal pulmonary function Acute myocardial infarction Congestive heart failure (< 1 month) History of inflammatory bowel disease Medical patient at bed rest Age 61-74 Arthroscopic surgery Major open surgery (> 45 min) Laparoscopic surgery (> 45 min) Malignancy Confined to bed (> 72 hours) Immobilizing plaster cast Central venous access Age >= 75 History of VTE Family history of VTE Factor V Leiden Prothrombin [id number] Lupus anticoagulant Anticardiolipin antibodies Elevated serum homocysteine Heparin-induced thrombocytopenia Other congenital or acquired thrombophilia Stroke (< 1 month) Elective arthroplasty Hip, pelvis, or leg fracture Acute spinal cord injury (< 1 month) Prophylaxis Regimen: Total Risk Factor Score Risk Level Prophylaxis Regimen 0-1 Low Early ambulation 2 Moderate Order ONE of the following: *Sequential Compression Device (SCD) *Heparin 5000 units SQ BID 3-4 Higher Order ONE of the following medications: *Heparin 5000 units SQ TID *Enoxaparin/Lovenox 40 mg SQ daily (WT < 150 kg, CrCl > 30 mL/min) *Enoxaparin/Lovenox 30 mg SQ daily (WT < 150 kg, CrCl > 10-29 mL/min) *Enoxaparin/Lovenox 30 mg SQ BID (WT < 150 kg, CrCl > 30 mL/min) AND/OR *Sequential Compression Device (SCD) 5 or more Highest Order ONE of the following medications: *Heparin 5000 units SQ TID (Preferred with Epidurals) *Enoxaparin/Lovenox 40 mg SQ daily (WT < 150 kg, CrCl > 30 mL/min) *Enoxaparin/Lovenox 30 mg SQ daily (WT < 150 kg, CrCl > 10-29 mL/min) *Enoxaparin/Lovenox 30 mg SQ BID (WT < 150 kg, CrCl > 30 mL/min) AND *Sequential Compression Device (SCD) Assessment and Plan - Plan Assessment/plan: 1. Small bowel obstruction CT of the abdomen/pelvis showed findings consistent with small bowel obstruction primarily involving ileal loops N.p.o. IV fluids Morphine for pain General surgery consulted, appreciate assistance 2. Hepatitis C/COPD Stable Continue outpatient follow-up FEN N.p.o. Electrolytes: Monitor and replete as needed NS at 70 cc/hour
[2018-08-26] MEDS: Morphine Sulfate Inj 2 MG/ML Vial IV.PUSH PRN ×2 (03:51→08:16)
[2018-08-26] MEDS ORDERED: Morphine Inj 4 MG/ML Vial IV.PUSH ONE (05:33)
--- NOTE | 2018-08-26 10:43 | P.CONGS ---
[facility] Gen Surgery Consult Note Consult date: 08/26/18 Narrative: 48 yo F admitted for small bowel obstruction. She is a poor historian right now as she appears in some distress. She relates severe pain in the lower abdomen which began yesterday and associated with multiple episodes of emesis. She had a bowel movt yesterday. She says that for a few weeks it has felt like something was wanting to "come out" of her lower abdominal scar where she does have a small ulcer or possibly area of drainage. She cannot remember her previous surgeries exactly but has had a hysterectomy (h/o cervical ca), surgery for endometriosis, and ex lap for small bowel obstruction. Has hep C and documented h/o cirrhosis. Review of Systems All other systems reviewed negative except as stated in [facility] - History History Provided By: Patient - Medical History Medical History: Medical History (Last Reviewed 08/26/18 @ 02:12 by Annette Giordano MD) Bowel obstruction Endometriosis H/O: hysterectomy Hepatitis C Hx of cervical cancer Hypercholesteremia Hypotension Schizophrenia - Surgical History Surgical History: Surgical History (Last Updated 08/26/18 @ 02:12 by Annette Giordano MD) Status post small bowel resection - Family History Family History: Family History (Last Updated 08/26/18 @ 02:12 by Annette Giordano MD) Other Coronary artery disease - Tobacco History Second Hand Smoke Exposure: Yes Tobacco Use In Past 30 Days: Yes Smoking Status: Current every day smoker Tobacco Type: Cigarettes - Alcohol History How Often Do You Have a Drink Containing Alcohol: Monthly or less - Substance Use History Substance History: Active Abuse - Substance Use Type Methamphetamine Status: Active Route Used: Intravenously Reason for Use: Feels Good, Get High - Travel History Recent Travel in the [place] Within the Last 8 Weeks: No Recent Travel Out of the Country Within the Last 8 Weeks: No - Immunization History Tetanus Immunization: Unsure Hx Influenza Vaccine This Season: No Medications and Allergies Active Medications: Active Medications Sodium Chloride (Ns Inj) 1,000 mls @ 70 mls/hr IV.CONT .[id number] [facility] Last Admin: 08/26/18 02:08 Dose: 70 mls/hr Morphine Sulfate (Morphine Inj) 2 mg IV.PUSH Q4H PRN PRN Reason: PAIN 6-10;IF UNABLE TO TAKE PO Last Admin: 08/26/18 08:16 Dose: 2 mg Ondansetron HCl (Zofran Inj) 4 mg IV.PUSH Q6H PRN PRN Reason: NAUSEA OR VOMITING Last Admin: 08/26/18 09:44 Dose: 4 mg Allergies Allergy/AdvReac Type Severity Reaction Status Date / Time albuterol Allergy Severe Hives Verified 08/25/18 22:59 Home Medications Medication Instructions Recorded Confirmed Type buspirone 15 mg PO TID 08/25/18 08/25/18 History olanzapine [Zyprexa] 20 mg PO HS 08/25/18 08/25/18 History Exam Vital signs: Vital Signs 08/25/18 23:00 08/25/18 23:15 08/26/18 00:45 Temperature 99.0 F 99.0 F Pulse Rate 99 H 96 H 96 H Respiratory Rate 22 22 18 Blood Pressure 114/69 114/69 88/41 L Pulse Oximetry 97 98 96 08/26/18 03:03 08/26/18 03:44 08/26/18 03:54 Temperature 97.9 F Pulse Rate 78 78 Respiratory Rate 20 18 18 Blood Pressure 89/54 L 103/50 L Pulse Oximetry 95 08/26/18 05:32 08/26/18 05:44 08/26/18 08:00 Temperature 98.5 F Pulse Rate 75 75 Respiratory Rate 18 20 Blood Pressure 107/53 L Pulse Oximetry 96 Intake & Output 08/25/18 08/26/18 08/26/18 18:59 06:59 18:59 Intake Total 1000 / 1000 Balance 1000 / 1000 Weight 54.431 kg Intake: IV 1000 / 1000 NS Inj 1,000 ML @ 125 mls/hr IV 1000 / 1000 .CONT .Q8H [facility] Rx#:[id number] Oral 0 / 0 Other: # Voids 1 Date of Last Bowel Movement 08/25/18 # Bowel Movements 0 Weight On Admission 54.431 kg Results - Labs 08/25/18 23:10 08/25/18 23:10 Laboratory Results - last 24 hr 08/25/18 08/25/18 08/25/18 23:10 23:10 23:10 WBC 10.0 RBC 3.81 L Hgb 12.3 Hct 35.8 MCV 94.0 MCH 32.4 MCHC 34.5 RDW 14.8 Plt Count 229 MPV 7.2 Neut % (Auto) 61.4 Lymph % (Auto) 26.5 [place] % (Auto) 8.4 H Eos % (Auto) 2.0 Baso % (Auto) 1.7 Neut # (Auto) 6.1 Lymph # (Auto) 2.6 [place] # (Auto) 0.8 Eos # (Auto) 0.2 Baso # (Auto) 0.2 WBC Differential . Differential Comment Auto diff final PT 9.5 L INR 0.9 APTT 25.4 Sodium 143 Potassium 4.2 Chloride 103 Carbon Dioxide 34.8 H Anion Gap 5 BUN 14 Creatinine 0.76 Estimated GFR 81 L Random Glucose 88 Calcium 9.2 Total Bilirubin 0.2 AST 47 H ALT 48 Alkaline Phosphatase 129 H Total Protein 7.9 Albumin 3.1 L Lipase 85 Urine Color Urine Clarity Urine pH Ur Specific [place] Urine Protein Urine Glucose (UA) Urine Ketones Urine Occult Blood Urine Nitrate Urine Bilirubin Urine Urobilinogen Ur Leukocyte Esterase Urine RBC Urine WBC Ur Squamous Epith Cells Amorphous Sediment Urine Bacteria Micro UA Comment Ur Microscopic Review Urine Culture Comments 08/25/18 23:33 WBC RBC Hgb Hct MCV MCH MCHC RDW Plt Count MPV Neut % (Auto) Lymph % (Auto) [place] % (Auto) Eos % (Auto) Baso % (Auto) Neut # (Auto) Lymph # (Auto) [place] # (Auto) Eos # (Auto) Baso # (Auto) WBC Differential Differential Comment PT INR APTT Sodium Potassium Chloride Carbon Dioxide Anion Gap BUN Creatinine Estimated GFR Random Glucose Calcium Total Bilirubin AST ALT Alkaline Phosphatase Total Protein Albumin Lipase Urine Color Yellow Urine Clarity Turbid H Urine pH 7.0 Ur Specific [place] 1.016 Urine Protein Negative Urine Glucose (UA) Negative Urine Ketones Negative Urine Occult Blood Negative Urine Nitrate Negative Urine Bilirubin Negative Urine Urobilinogen Less than 2 Ur Leukocyte Esterase Trace H Urine RBC 2 Urine WBC 5 Ur Squamous Epith Cells 3 Amorphous Sediment Moderate H Urine Bacteria Occasional H Micro UA Comment Culture not ind Ur Microscopic Review Not Reportable Urine Culture Comments Culture not ind - Imaging Imaging: ITS Impressions Abdomen/Pelvis CT 08/26/18 00:22 CONCLUSION: 1. Findings consistent with small bowel obstruction, primarily involving ileal loops in the mid to lower right abdomen. There are decompressed proximal and distal small bowel loops without a focal transition point. Overall appearance is similar to prior CT examination of 02/17/2017. 2. Mild prominence of the renal collecting systems and proximal ureters bilaterally. Suspect this is reactive in etiology. 3. Hepatomegaly with redemonstration of splenorenal collaterals. Portal vein is patent. CT scan - abdomen: report reviewed, image reviewed CT scan - pelvis: report reviewed, image reviewed Assessment and Plan - Assessment (1) Small bowel obstruction Code(s): K56.609 - Unspecified intestinal obstruction, unspecified as to partial versus complete obstruction Status: Acute - Plan SBO in setting of multiple previous surgeries and hep c, cirrhosis. Attempt conservative management. Place NGT to LIS. Increase pain medication.
[2018-08-26 12:21] LABS: Baso % (Auto) 0.2 % (0.0-2.0); Eos # (Auto) 0.1 th/mm3 (0.0-0.4); Eos % (Auto) 0.4 % (0.0-4.0); Hematocrit 43.4 % (35.0-46.0); Hemoglobin 14.8 gm/dL (11.6-15.3); Lymph # (Auto) 1.1 th/mm3 (1.0-4.8); Lymph % (Auto) 6.1 % (9.0-44.0); Mean Corpuscular Hemoglobin 32.5 pg (27.0-34.0); Mean Corpuscular Volume 95.5 fL (80.0-100.0); Mean Platelet Volume 7.4 fL (7.0-11.0); Mono # (Auto) 0.8 th/mm3 (0.0-0.9); Mono % (Auto) 4.5 % (0.0-8.0); Neut # (Auto) 15.5 th/mm3 (1.8-7.7); Neut % (Auto) 88.8 % (16.0-70.0); Platelet Count 274 th/mm3 (150-450); Red Blood Count 4.54 mil/mm3 (4.00-5.30); Red Cell Distribution Width 15.2 % (11.6-17.2); White Blood Count 17.5 th/mm3 (4.0-11.0)
--- NOTE | 2018-08-26 14:25 | P.PNADD ---
Addendum to Inpatient Note Additional information: Patient seen/examined. Appreciate Gen surgery input. NG tube in place. Will continue supportive care.
[2018-08-26] MEDS: HYDROmorphone PF Inj 2 MG/ML Vial IV.PUSH PRN ×3 (14:26→20:19)
[2018-08-26] MEDS ORDERED: Vancomycin Consult Pharmacy OTHER PRN (21:00)
--- NOTE | 2018-08-26 21:00 | P.PNGS ---
Subjective Interval history: Recheck tonight- WBC earlier 17,000. NGT was placed and her pain is significantly improved but still present in the lower abdomen. Nausea present but improved. She has passed flatus. She has forearm abscess on right and left forearms, L>R. May need I&D, and may also be contributing to low grade temps and leukocytosis. Will start vancomycin. Physical Exam Vital signs: Vital Signs 08/25/18 23:00 08/25/18 23:15 08/26/18 00:45 Temperature 99.0 F 99.0 F Pulse Rate 99 H 96 H 96 H Respiratory Rate 22 22 18 Blood Pressure 114/69 114/69 88/41 L Pulse Oximetry 97 98 96 08/26/18 03:03 08/26/18 03:44 08/26/18 03:54 Temperature 97.9 F Pulse Rate 78 78 Respiratory Rate 20 18 18 Blood Pressure 89/54 L 103/50 L Pulse Oximetry 95 08/26/18 05:32 08/26/18 05:44 08/26/18 08:00 Temperature 98.5 F Pulse Rate 75 75 Respiratory Rate 18 20 Blood Pressure 107/53 L Pulse Oximetry 96 08/26/18 12:00 08/26/18 16:00 08/26/18 20:00 Temperature 98.7 F 100.4 F H 99.5 F Pulse Rate 75 97 H 94 H Respiratory Rate 20 20 18 Blood Pressure 120/53 L 93/51 L 113/56 L Pulse Oximetry 96 95 93 L Intake & Output 08/26/18 08/26/18 08/27/18 06:59 18:59 06:59 Intake Total 1000 / 1000 1000 / 1000 Output Total 3 / 3 125 / 125 Balance 1000 / 1000 997 / 997 -125 / -125 Weight 54.431 kg Intake: IV 1000 / 1000 1000 / 1000 NS Inj 1,000 ML @ 70 mls/hr IV. 1000 / 1000 1000 / 1000 CONT .[id number] [facility] Rx#:[id number] Oral 0 / 0 Output: Urine 3 / 3 Gastric Drainage 125 / 125 Left Nare Nasogastric Tube 125 / 125 Other: # Voids 1 Date of Last Bowel Movement 08/25/18 08/25/18 # Bowel Movements 0 Weight On Admission 54.431 kg Results - Labs 08/26/18 12:05 10/03/18 23:10 Laboratory Results - last 24 hr 08/25/18 08/25/18 08/25/18 23:10 23:10 23:10 WBC 10.0 RBC 3.81 L Hgb 12.3 Hct 35.8 MCV 94.0 MCH 32.4 MCHC 34.5 RDW 14.8 Plt Count 229 MPV 7.2 Neut % (Auto) 61.4 Lymph % (Auto) 26.5 [place] % (Auto) 8.4 H Eos % (Auto) 2.0 Baso % (Auto) 1.7 Neut # (Auto) 6.1 Lymph # (Auto) 2.6 [place] # (Auto) 0.8 Eos # (Auto) 0.2 Baso # (Auto) 0.2 WBC Differential . Differential Comment Auto diff final PT 9.5 L INR 0.9 APTT 25.4 Sodium 143 Potassium 4.2 Chloride 103 Carbon Dioxide 34.8 H Anion Gap 5 BUN 14 Creatinine 0.76 Estimated GFR 81 L Random Glucose 88 Calcium 9.2 Total Bilirubin 0.2 AST 47 H ALT 48 Alkaline Phosphatase 129 H Total Protein 7.9 Albumin 3.1 L Lipase 85 Urine Color Urine Clarity Urine pH Ur Specific [place] Urine Protein Urine Glucose (UA) Urine Ketones Urine Occult Blood Urine Nitrate Urine Bilirubin Urine Urobilinogen Ur Leukocyte Esterase Urine RBC Urine WBC Ur Squamous Epith Cells Amorphous Sediment Urine Bacteria Micro UA Comment Ur Microscopic Review Urine Culture Comments 08/25/18 08/26/18 23:33 12:05 WBC 17.5 H D RBC 4.54 Hgb 14.8 D Hct 43.4 MCV 95.5 MCH 32.5 MCHC 34.0 RDW 15.2 Plt Count 274 MPV 7.4 Neut % (Auto) 88.8 H Lymph % (Auto) 6.1 L [place] % (Auto) 4.5 Eos % (Auto) 0.4 Baso % (Auto) 0.2 Neut # (Auto) 15.5 H Lymph # (Auto) 1.1 [place] # (Auto) 0.8 Eos # (Auto) 0.1 Baso # (Auto) 0.0 WBC Differential . Differential Comment Auto diff final PT INR APTT Sodium Potassium Chloride Carbon Dioxide Anion Gap BUN Creatinine Estimated GFR Random Glucose Calcium Total Bilirubin AST ALT Alkaline Phosphatase Total Protein Albumin Lipase Urine Color Yellow Urine Clarity Turbid H Urine pH 7.0 Ur Specific [place] 1.016 Urine Protein Negative Urine Glucose (UA) Negative Urine Ketones Negative Urine Occult Blood Negative Urine Nitrate Negative Urine Bilirubin Negative Urine Urobilinogen Less than 2 Ur Leukocyte Esterase Trace H Urine RBC 2 Urine WBC 5 Ur Squamous Epith Cells 3 Amorphous Sediment Moderate H Urine Bacteria Occasional H Micro UA Comment Culture not ind Ur Microscopic Review Not Reportable Urine Culture Comments Culture not ind - Imaging Imaging: ITS Impressions Abdomen/Pelvis CT 08/26/18 00:22 CONCLUSION: 1. Findings consistent with small bowel obstruction, primarily involving ileal loops in the mid to lower right abdomen. There are decompressed proximal and distal small bowel loops without a focal transition point. Overall appearance is similar to prior CT examination of 02/17/2017. 2. Mild prominence of the renal collecting systems and proximal ureters bilaterally. Suspect this is reactive in etiology. 3. Hepatomegaly with redemonstration of splenorenal collaterals. Portal vein is patent. Assessment and Plan - Assessment (1) Small bowel obstruction Code(s): K56.609 - Unspecified intestinal obstruction, unspecified as to partial versus complete obstruction Status: Acute - Plan SBO in setting of multiple previous surgeries and hep c, cirrhosis. Attempt conservative management. Place NGT to LIS. Increase pain medication.
[2018-08-26] MEDS ORDERED: Vancomycin Inj 1,000 MG in Sodium Chlor 0.9% Inj 250 ML IV.SIG ONE (21:01)
[2018-08-27] MEDS: HYDROmorphone PF Inj 2 MG/ML Vial IV.PUSH PRN ×11 (00:31→22:13)
[2018-08-27 05:28] LABS: Baso % (Auto) 0.2 % (0.0-2.0); Eos # (Auto) 0.2 th/mm3 (0.0-0.4); Eos % (Auto) 1.9 % (0.0-4.0); Hematocrit 34.1 % (35.0-46.0); Hemoglobin 11.7 gm/dL (11.6-15.3); Lymph # (Auto) 2.3 th/mm3 (1.0-4.8); Lymph % (Auto) 27.5 % (9.0-44.0); Mean Corpuscular HGB Conc 34.4 % (32.0-36.0); Mean Corpuscular Hemoglobin 32.2 pg (27.0-34.0); Mean Corpuscular Volume 93.6 fL (80.0-100.0); Mean Platelet Volume 7.4 fL (7.0-11.0); Mono # (Auto) 0.9 th/mm3 (0.0-0.9); Mono % (Auto) 10.4 % (0.0-8.0); Platelet Count 215 th/mm3 (150-450); Red Blood Count 3.65 mil/mm3 (4.00-5.30); Red Cell Distribution Width 14.8 % (11.6-17.2); White Blood Count 8.3 th/mm3 (4.0-11.0)
[2018-08-27 05:55] LABS: Calcium 7.8 mg/dL (8.5-10.1); Carbon Dioxide 29.1 meq/L (21.0-32.0); Potassium 4.4 meq/L (3.5-5.1)
--- NOTE | 2018-08-27 08:03 | P.PNGS ---
Subjective Interval history: She is having diarrhea now. WBC is nml after dose of vanco last night. NGT with low output. Still c/o abdominal pain. Physical Exam Vital signs: Vital Signs 08/26/18 12:00 08/26/18 16:00 08/26/18 20:00 Temperature 98.7 F 100.4 F H 99.5 F Pulse Rate 75 97 H 94 H Respiratory Rate 20 20 16 Blood Pressure 120/53 L 93/51 L 127/59 L Pulse Oximetry 96 95 93 L 08/27/18 00:00 08/27/18 04:00 Temperature 98.7 F 98.3 F Pulse Rate 90 75 Respiratory Rate 18 18 Blood Pressure 117/63 112/55 L Pulse Oximetry 93 L 93 L Intake & Output 08/26/18 08/27/18 08/27/18 18:59 06:59 18:59 Intake Total 1000 / 1000 250 / 250 Output Total 3 / 3 1225 / 1225 Balance 997 / 997 -975 / -975 Weight 54.431 kg Intake: IV 1000 / 1000 250 / 250 NS Inj 1,000 ML @ 70 mls/hr IV. 1000 / 1000 CONT .[id number] [facility] Rx#:[id number] Vancomycin Inj 1,000 MG In NS 250 / 250 Inj 250 ML @ 250 mls/hr IV.SIG ONCE ONE Rx#:[id number] Output: Urine 3 / 3 Gastric Drainage 1225 / 1225 Left Nare Nasogastric Tube 1225 / 1225 Other: Date of Last Bowel Movement 08/25/18 08/27/18 Narrative: No distress NGT min output On toilet cannot exam abdomen now Left forearm 4x2 cm abscess with fluctuance, no erythema Results - Labs 08/27/18 04:28 08/27/18 04:28 Laboratory Results - last 24 hr 08/26/18 08/27/18 08/27/18 12:05 04:28 04:28 WBC 17.5 H D 8.3 D RBC 4.54 3.65 L Hgb 14.8 D 11.7 D Hct 43.4 34.1 L MCV 95.5 93.6 MCH 32.5 32.2 MCHC 34.0 34.4 RDW 15.2 14.8 Plt Count 274 215 MPV 7.4 7.4 Neut % (Auto) 88.8 H 60.0 Lymph % (Auto) 6.1 L 27.5 [place] % (Auto) 4.5 10.4 H Eos % (Auto) 0.4 1.9 Baso % (Auto) 0.2 0.2 Neut # (Auto) 15.5 H 5.0 Lymph # (Auto) 1.1 2.3 [place] # (Auto) 0.8 0.9 Eos # (Auto) 0.1 0.2 Baso # (Auto) 0.0 0.0 WBC Differential . . Differential Comment Auto diff final Auto diff final Sodium 140 Potassium 4.4 Chloride 102 Carbon Dioxide 29.1 Anion Gap 9 BUN 26 H Creatinine 0.79 Estimated GFR 77 L Random Glucose 101 Calcium 7.8 L D - Imaging Imaging: ITS Impressions Abdomen/Pelvis CT 08/26/18 00:22 CONCLUSION: 1. Findings consistent with small bowel obstruction, primarily involving ileal loops in the mid to lower right abdomen. There are decompressed proximal and distal small bowel loops without a focal transition point. Overall appearance is similar to prior CT examination of 02/17/2017. 2. Mild prominence of the renal collecting systems and proximal ureters bilaterally. Suspect this is reactive in etiology. 3. Hepatomegaly with redemonstration of splenorenal collaterals. Portal vein is patent. Assessment and Plan - Assessment (1) Small bowel obstruction Code(s): K56.609 - Unspecified intestinal obstruction, unspecified as to partial versus complete obstruction Status: Acute (2) Abscess of forearm, left Code(s): L02.414 - Cutaneous abscess of left upper limb Status: Acute (3) Abscess of forearm, right Code(s): L02.413 - Cutaneous abscess of right upper limb Status: Acute - Plan Diarrhea this am- SBO improving/resolving. Possibly can remove NGT later today. Will reassess. Bilateral forearm abscesses- cont vanco. Plan I&D left arm abscess at bedside today.
[2018-08-27] MEDS ORDERED: Lidocaine 1%/Epinephrine 1:100,000 Inj 20 ML Vial INFILTRATN ONE (09:00)
[2018-08-27] MEDS: Sod Chloride 0.9% Inj 1,000 ML IV.CONT SCH ×2 (09:02→22:12)
[2018-08-27] MEDS ORDERED: Lidocaine 1%/Epinephrine 1:100,000 Inj 50 ML Vial INFILTRATN ONE (09:30)
[2018-08-27] MEDS ORDERED: Vancomycin Inj 750 MG in Sodium Chlor 0.9% Inj 250 ML IV.SIG ONE (10:00)
--- NOTE | 2018-08-27 12:35 | P.PN ---
Subjective Interval history: Follow-up for small bowel obstruction, left forearm abscess: Patient is feeling better, less nausea, no vomiting, having diarrhea now, abdomen still runner lower aspect. Febrile last night, 100.4. Has an abscess to the left forearm, it is indurated. Positive for IV drug use, indicates she recently relapsed. No chest pain, shortness of breath. Dr. Vilchis has evaluated, plans to return and do I&D at bedside. Was started on vancomycin last night NG output 1225 Physical Exam Vital signs: Vital Signs 08/26/18 16:00 08/26/18 20:00 08/27/18 00:00 Temperature 100.4 F H 99.5 F 98.7 F Pulse Rate 97 H 94 H 90 Respiratory Rate 20 16 18 Blood Pressure 93/51 L 127/59 L 117/63 Pulse Oximetry 95 93 L 93 L 08/27/18 04:00 08/27/18 08:00 08/27/18 12:00 Temperature 98.3 F 98.0 F 98.0 F Pulse Rate 75 86 77 Respiratory Rate 18 16 16 Blood Pressure 112/55 L 121/55 L 100/58 L Pulse Oximetry 93 L 94 L 98 Intake & Output 08/26/18 08/27/18 08/27/18 18:59 06:59 18:59 Intake Total 1000 / 1000 1250 / 1250 Output Total 3 / 3 1225 / 1225 Balance 997 / 997 25 / 25 Weight 54.431 kg Intake: IV 1000 / 1000 1250 / 1250 NS Inj 1,000 ML @ 70 mls/hr IV. 1000 / 1000 1000 / 1000 CONT .[id number] [facility] Rx#:[id number] Vancomycin Inj 1,000 MG In NS 250 / 250 Inj 250 ML @ 250 mls/hr IV.SIG ONCE ONE Rx#:[id number] Output: Urine 3 / 3 Gastric Drainage 1225 / 1225 Left Nare Nasogastric Tube 1225 / 1225 Other: Date of Last Bowel Movement 08/25/18 08/27/18 08/27/18 Narrative: GENERAL: Thin built female. No apparent distress SKIN: Warm and dry. HEAD: Atraumatic. Normocephalic. EYES: Pupils equal and round. No scleral icterus. No injection or drainage. ENT: No nasal bleeding or discharge. Mucous membranes pink and moist. NECK: Trachea midline. No JVD. CARDIOVASCULAR: Regular rate and rhythm. RESPIRATORY: No accessory muscle use. Clear to auscultation. Breath sounds equal bilaterally. GASTROINTESTINAL: Abdomen soft, non-tender, tender to lower abdomen. Has mid abdominal scar with small ulcerated wound. Hepatic and splenic margins not palpable. Bowel sounds hypoactive x4. NG tube to low intermittent suction. MUSCULOSKELETAL: Extremities without clubbing, cyanosis, or edema. No obvious deformities. Left forearm with abscess with some fluctuance, minimal erythema. 4 x 2 cm. Bilateral pedal pulses 2+. NEUROLOGICAL: Awake and alert. No obvious cranial nerve deficits. Motor grossly within normal limits. Five out of 5 muscle strength in the arms and legs. Normal speech. PSYCHIATRIC: Appropriate mood and affect; insight and judgment normal. Results - Labs CBC & Chem 7: 08/27/18 04:28 08/27/18 04:28 Laboratory Results - last 24 hr 08/26/18 08/27/18 08/27/18 12:05 04:28 04:28 WBC 17.5 H D 8.3 D RBC 4.54 3.65 L Hgb 14.8 D 11.7 D Hct 43.4 34.1 L MCV 95.5 93.6 MCH 32.5 32.2 MCHC 34.0 34.4 RDW 15.2 14.8 Plt Count 274 215 MPV 7.4 7.4 Neut % (Auto) 88.8 H 60.0 Lymph % (Auto) 6.1 L 27.5 Falls % (Auto) 4.5 10.4 H Eos % (Auto) 0.4 1.9 Baso % (Auto) 0.2 0.2 Neut # (Auto) 15.5 H 5.0 Lymph # (Auto) 1.1 2.3 Falls # (Auto) 0.8 0.9 Eos # (Auto) 0.1 0.2 Baso # (Auto) 0.0 0.0 WBC Differential . . Differential Comment Auto diff final Auto diff final Sodium 140 Potassium 4.4 Chloride 102 Carbon Dioxide 29.1 Anion Gap 9 BUN 26 H Creatinine 0.79 Estimated GFR 77 L Random Glucose 101 Calcium 7.8 L D Assessment and Plan - Assessment (1) Small bowel obstruction Code(s): K56.609 - Unspecified intestinal obstruction, unspecified as to partial versus complete obstruction Status: Acute (2) Abscess of forearm, left Code(s): L02.414 - Cutaneous abscess of left upper limb Status: Acute (3) IV drug abuse Code(s): F19.10 - Other psychoactive substance abuse, uncomplicated Status: Chronic (4) Leukocytosis Code(s): D72.829 - Elevated white blood cell count, unspecified Status: Acute (5) History of bowel resection Code(s): Z98.890 - Other specified postprocedural states; Z90.49 - Acquired absence of other specified parts of digestive tract Status: Chronic (6) Hepatitis C Code(s): B19.20 - Unspecified viral hepatitis C without hepatic coma Status: Chronic (7) History of cirrhosis Code(s): Z87.19 - Personal history of other diseases of the digestive system Status: Chronic - Plan Assessment/plan 48-year-old female with past medical history significant for history of exploratory lap for small bowel obstruction, endometriosis, hysterectomy, COPD and hepatitis C and IV drug use. Presented to emergency room for abdominal pain , nausea, vomiting. Complains of diffuse abdominal pain. CT findings of small bowel obstruction. Small bowel obstruction, has had multiple abdominal surgery including exploratory lap, hysterectomy. CT of the abdomen/pelvis showed findings consistent with small bowel obstruction primarily involving ileal loops Appreciate surgical input Having bowel movements a day, abdominal pain somewhat improved. Continue with conservative management NG tube to low intermittent suction Pain management IV fluids Antiemetics as needed Leukocytosis, WBC up to 1700. Fever yesterday 100.4. Patient is noted with an abscess to the left forearm, history of IV drug use. WBC trending down -Continue vancomycin Appreciate Dr. Vilchis's input, he will be doing I&D of abscess. Hepatitis C IV drug use -Patient has been counseled, needs to follow-up as outpatient with PCP. 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 (6) Hepatitis C Qualifiers: Viral hepatitis chronicity: chronic Hepatic coma status: without hepatic coma Qualified Code(s): B18.2 - Chronic viral hepatitis C
--- NOTE | 2018-08-27 13:45 | P.PCN ---
Date of procedure: 08/27/18 Pre-op diagnosis: Left forearm abscess Post-op diagnosis: same Procedure: Incision and drainage left forearm abscess The patient remained in her bed on the sixth floor. Consent was obtained for incision and drainage of left forearm abscess. The area was sterilized with Betadine. 2% lidocaine with was injected in the skin and subcutaneous tissue. A 1 cm incision was made and there was evacuation of a large amount of purulent material. The wound was packed with iodoform and sterile dressing applied. Anesthesia: local Surgeon: Steven Vilchis Estimated blood loss (mL): 5 Pathology: none sent Condition: stable
[2018-08-27] MEDS ORDERED: Influenza (Quadrivalent) Vaccine 0.5 ML Syringe IM ONE (18:30)
[2018-08-27] MEDS ORDERED: Vancomycin Inj 750 MG in Sodium Chlor 0.9% Inj 250 ML IV.SIG SCH (22:00)
[2018-08-28] MEDS: HYDROmorphone PF Inj 2 MG/ML Vial IV.PUSH PRN ×3 (00:42→05:58)
[2018-08-28 07:02] LABS: Hematocrit 31.9 % (35.0-46.0); Hemoglobin 10.6 gm/dL (11.6-15.3); Mean Corpuscular HGB Conc 33.4 % (32.0-36.0); Mean Corpuscular Hemoglobin 31.7 pg (27.0-34.0); Mean Corpuscular Volume 94.9 fL (80.0-100.0); Mean Platelet Volume 7.4 fL (7.0-11.0); Platelet Count 174 th/mm3 (150-450); Red Blood Count 3.36 mil/mm3 (4.00-5.30); Red Cell Distribution Width 14.6 % (11.6-17.2)
[2018-08-28] MEDS ORDERED: Ketorolac Inj 30 MG/ML (IVP) Vial IV.PUSH PRN (07:08)
--- NOTE | 2018-08-28 07:14 | P.PNGS ---
Subjective Interval history: Pain in lower and upper abdomen. She is still passing flatus and tolerates clears. Physical Exam Vital signs: Vital Signs 08/27/18 08:00 08/27/18 12:00 08/27/18 16:00 Temperature 98.0 F 98.0 F 98.5 F Pulse Rate 86 77 16 L Respiratory Rate 16 16 16 Blood Pressure 121/55 L 100/58 L 104/53 L Pulse Oximetry 94 L 98 98 08/27/18 20:00 08/28/18 00:00 08/28/18 04:00 Temperature 97.4 F L 97.4 F L 98.1 F Pulse Rate 75 81 81 Respiratory Rate 18 18 18 Blood Pressure 109/62 109/55 L 120/74 Pulse Oximetry 97 96 97 Intake & Output 08/27/18 08/28/18 08/28/18 18:59 06:59 18:59 Intake Total 1345 / 1345 1257.5 / 1257.5 Output Total 400 / 400 Balance 945 / 945 1257.5 / 1257.5 Intake: IV 265 / 265 1257.5 / 1257.5 NS Inj 1,000 ML @ 70 mls/hr IV. 1000 / 1000 CONT .[id number] [facility] Rx#:[id number] Vancomycin Inj 750 MG In NS Inj 257.5 / 257.5 250 ML @ 250 mls/hr IV.SIG Q12H [facility] Rx#:[id number] Vancomycin Inj 750 MG In NS Inj 265 / 265 250 ML @ 265 mls/hr IV.SIG ONCE ONE Rx#:[id number] Oral 1080 / 1080 Output: Urine 400 / 400 Other: # Voids 4 Date of Last Bowel Movement 08/27/18 08/27/18 # Bowel Movements 1 1 Narrative: NAD Abd: soft, mild distention, moderate ttp LLQ possible tiny fat containing hernia Left forearm abscess much better, no purulence or erythema, improved induration Results - Labs 08/28/18 05:38 08/27/18 04:28 Laboratory Results - last 24 hr 08/28/18 05:38 WBC 5.0 RBC 3.36 L Hgb 10.6 L Hct 31.9 L MCV 94.9 MCH 31.7 MCHC 33.4 RDW 14.6 Plt Count 174 MPV 7.4 - Imaging Imaging: ITS Impressions Abdomen/Pelvis CT 08/26/18 00:22 CONCLUSION: 1. Findings consistent with small bowel obstruction, primarily involving ileal loops in the mid to lower right abdomen. There are decompressed proximal and distal small bowel loops without a focal transition point. Overall appearance is similar to prior CT examination of 02/17/2017. 2. Mild prominence of the renal collecting systems and proximal ureters bilaterally. Suspect this is reactive in etiology. 3. Hepatomegaly with redemonstration of splenorenal collaterals. Portal vein is patent. Assessment and Plan - Assessment (1) Small bowel obstruction Code(s): K56.609 - Unspecified intestinal obstruction, unspecified as to partial versus complete obstruction Status: Acute (2) Abscess of forearm, left Code(s): L02.414 - Cutaneous abscess of left upper limb Status: Acute (3) Abscess of forearm, right Code(s): L02.413 - Cutaneous abscess of right upper limb Status: Acute - Plan SBO resolving- start regular soft diet. Has pain likely GERD upper abdomen. Start H2 antonina, tums. Lower abdominal pain may be secondary to scar tissue and small fat containing hernia. Do not recommend any operative intervention in this regard. Bilateral forearm abscesses- better after I&D yesterday. Stop vanco start bactrim. Does not need to be packed.
[2018-08-28 07:34] LABS: Anion Gap 7 meq/L (5-15); Blood Urea Nitrogen 11 mg/dL (7-18); Calcium 7.9 mg/dL (8.5-10.1); Carbon Dioxide 30.1 meq/L (21.0-32.0); Chloride 107 meq/L (98-107); Glomerular Filtration Rate Greater Than 89 mL/min (>89); Glucose,Random 76 mg/dL (74-106); Sodium 144 meq/L (136-145)
[2018-08-28] MEDS ORDERED: Famotidine 20 MG Tablet PO SCH (09:00)
[2018-08-28 09:23] VITALS: BP 107/56; PULSE 66; RESP 17; TEMP 98; O2SAT 99
[2018-08-28] MEDS ORDERED: Pharmacy Ordered Lab Info OTHER ONE (09:45)
--- NOTE | 2018-08-28 10:22 | P.PN ---
Subjective Interval history: Follow-up for small bowel obstruction, right and left forearm abscess: awakes to voice, oriented x 3. Abd pain better, mild nausea. Tolerating solids okay. Having stools. Left FA abscess was drained yesterday. No fever. No Cp, no sob. Physical Exam Vital signs: Vital Signs 08/27/18 12:00 08/27/18 16:00 08/27/18 20:00 Temperature 98.0 F 98.5 F 97.4 F L Pulse Rate 77 16 L 75 Respiratory Rate 16 16 18 Blood Pressure 100/58 L 104/53 L 109/62 Pulse Oximetry 98 98 97 08/28/18 00:00 08/28/18 04:00 08/28/18 08:00 Temperature 97.4 F L 98.1 F 98.0 F Pulse Rate 81 81 66 Respiratory Rate 18 18 17 Blood Pressure 109/55 L 120/74 107/56 L Pulse Oximetry 96 97 99 Intake & Output 08/27/18 08/28/18 08/28/18 18:59 06:59 18:59 Intake Total 1345 / 1345 1257.5 / 1257.5 Output Total 400 / 400 Balance 945 / 945 1257.5 / 1257.5 Intake: IV 265 / 265 1257.5 / 1257.5 NS Inj 1,000 ML @ 70 mls/hr IV. 1000 / 1000 CONT .[id number] [facility] Rx#:[id number] Vancomycin Inj 750 MG In NS Inj 257.5 / 257.5 250 ML @ 250 mls/hr IV.SIG Q12H [facility] Rx#:[id number] Vancomycin Inj 750 MG In NS Inj 265 / 265 250 ML @ 265 mls/hr IV.SIG ONCE ONE Rx#:[id number] Oral 1080 / 1080 Output: Urine 400 / 400 Other: # Voids 4 Date of Last Bowel Movement 08/27/18 08/27/18 # Bowel Movements 1 1 Narrative: GENERAL: Thin built female. No apparent distress SKIN: small abscess noted too right wrist. HEAD: Atraumatic. Normocephalic. EYES: Pupils equal and round. No scleral icterus. No injection or drainage. ENT: No nasal bleeding or discharge. Mucous membranes pink and moist. NECK: Trachea midline. No JVD. CARDIOVASCULAR: Regular rate and rhythm. RESPIRATORY: No accessory muscle use. Clear to auscultation. Breath sounds equal bilaterally. GASTROINTESTINAL: Abdomen slightly distended, tender to lower abdomen. Has mid abdominal scar with small ulcerated wound. Hepatic and splenic margins not palpable. Bowel sounds normoactive x 4. MUSCULOSKELETAL: Extremities without clubbing, cyanosis, or edema. No obvious deformities. Left FA with dressing intact. Bilateral pedal pulses 2+. NEUROLOGICAL: Awake and alert. No obvious cranial nerve deficits. Motor grossly within normal limits. Five out of 5 muscle strength in the arms and legs. Normal speech. PSYCHIATRIC: Appropriate mood and affect; insight and judgment normal. Results - Labs CBC & Chem 7: 08/28/18 05:38 08/28/18 05:38 Laboratory Results - last 24 hr 08/28/18 08/28/18 05:38 05:38 WBC 5.0 RBC 3.36 L Hgb 10.6 L Hct 31.9 L MCV 94.9 MCH 31.7 MCHC 33.4 RDW 14.6 Plt Count 174 MPV 7.4 Sodium 144 Potassium 4.0 Chloride 107 Carbon Dioxide 30.1 Anion Gap 7 BUN 11 Creatinine 0.61 Estimated GFR Greater than 89 Random Glucose 76 Calcium 7.9 L Assessment and Plan - Assessment (1) Small bowel obstruction Code(s): K56.609 - Unspecified intestinal obstruction, unspecified as to partial versus complete obstruction Status: Acute (2) Abscess of forearm, left Code(s): L02.414 - Cutaneous abscess of left upper limb Status: Acute (3) IV drug abuse Code(s): F19.10 - Other psychoactive substance abuse, uncomplicated Status: Chronic (4) Leukocytosis Code(s): D72.829 - Elevated white blood cell count, unspecified Status: Acute (5) History of bowel resection Code(s): Z98.890 - Other specified postprocedural states; Z90.49 - Acquired absence of other specified parts of digestive tract Status: Chronic (6) Hepatitis C Code(s): B19.20 - Unspecified viral hepatitis C without hepatic coma Status: Chronic (7) History of cirrhosis Code(s): Z87.19 - Personal history of other diseases of the digestive system Status: Chronic - Plan Assessment/plan 48-year-old female with past medical history significant for history of exploratory lap for small bowel obstruction, endometriosis, hysterectomy, COPD and hepatitis C and IV drug use. Presented to emergency room for abdominal pain , nausea, vomiting. Complains of diffuse abdominal pain. CT findings of small bowel obstruction. Small bowel obstruction, has had multiple abdominal surgery including exploratory lap, hysterectomy. CT of the abdomen/pelvis showed findings consistent with small bowel obstruction primarily involving ileal loops Appreciate surgical input Having bowel movements a day, abdominal pain somewhat improved. Continue with conservative management diet adv to regular, tolerating well. Pain management IV fluids Antiemetics as needed -sx resolving. Left FA abscess, S/P I/D 08/27 Recent IV drug use. WBC normal, no more fevers. Right FA small abscess -Received Vanco. Now on Bactrim Appreciate Dr. Vilchis's input Hepatitis C IV drug use -Patient has been counseled, needs to follow-up as outpatient with PCP. COPD, stable -Continue to monitor Patient ambulatory, no DVT prophylaxis Labs reviewed, stable. Code Status: full code Discussed Condition With: RN, pt Discharge Planning: DC planning,poss home tomorrow after gen. surgery clears (6) Hepatitis C Qualifiers: Viral hepatitis chronicity: chronic Hepatic coma status: without hepatic coma Qualified Code(s): B18.2 - Chronic viral hepatitis C
--- NOTE | 2018-08-30 18:56 | P.DS ---
Date of admission: 08/26/18 02:10 Primary care physician: No Primary Care Physician Attending physician on discharge: Dov Hernandez Anticipated date of discharge: 08/28/18 Brief History from admission: 48-year-old female with past medical history significant for history of small bowel obstruction, endometriosis, COPD and hepatitis C presents the emergency department for evaluation of abdominal pain, nausea and vomiting that started last night. The patient reports 3 episodes of emesis since that time. She endorses accompanying chills but denies fevers. No chest pain. No shortness of breath. Last bowel movement was yesterday. She complains of diffuse, crampy abdominal pain that is 10/10. DS: Diagnosis - Discharge Diagnosis (1) Small bowel obstruction Status: Acute (2) Abscess of forearm, left Status: Acute (3) IV drug abuse Status: Chronic (4) Leukocytosis Status: Acute (5) History of bowel resection Status: Chronic (6) Hepatitis C Status: Chronic (7) History of cirrhosis Status: Chronic DS: Medications - Discharge Medications Prescriptions: sulfamethoxazole-trimethoprim 1 tab PO Q12HR 7 Days #14 tab DS: Summary Hospital Course: 48-year-old female with past medical history significant for history of exploratory lap for small bowel obstruction, endometriosis, hysterectomy, COPD and hepatitis C and IV drug use. Presented to emergency room for abdominal pain , nausea, vomiting. Complains of diffuse abdominal pain. CT findings of small bowel obstruction. Small bowel obstruction, has had multiple abdominal surgery including exploratory lap, hysterectomy. CT of the abdomen/pelvis showed findings consistent with small bowel obstruction primarily involving ileal loops Appreciate surgical input Having bowel movements a day, abdominal pain somewhat improved. Treated non operative with NGT, IVF, pain management. Started to improve, had BM, diet advanced. Also found with Left FA abscess, S/P I/D 08/27. Given Vanco then changed to PO Bactrim. Admitted to recent IV drug use. Had Right FA small abscess, no need for I/D, treated with abx. Pt. became upset, removed IV site and signed out AMA. She was counselled, attempted to give Rx for Bactrim but left unit. - Time Spent with Patient Total time spent providing and/or coordinating discharge services: Less than 30 minutes - Quality: VTE Deep Vein Thrombosis/Pulmonary Embolism Present on Admission: No Results Procedures completed during hospitalization: none - Impressions ITS Impressions Abdomen/Pelvis CT 08/26/18 00:22 CONCLUSION: 1. Findings consistent with small bowel obstruction, primarily involving ileal loops in the mid to lower right abdomen. There are decompressed proximal and distal small bowel loops without a focal transition point. Overall appearance is similar to prior CT examination of 02/17/2017. 2. Mild prominence of the renal collecting systems and proximal ureters bilaterally. Suspect this is reactive in etiology. 3. Hepatomegaly with redemonstration of splenorenal collaterals. Portal vein is patent. Discharge Plan - Discharge Disposition Patient Disposition: 07 Against Medical Advice - Discharge Condition Condition: Good - Discharge Order Discharge Orders: AMA Discharge (Routine); Ordered 08/28/18 Ordered By: Chloe Day - Physicians Team Primary Care Provider: Primary Care Asia Gunn Attending Provider: Sharon Plasencia Other Providers: Steven Vilchis MD
== END 2018-08-28 11:15 | disposition left against medical advice (07) ==
LOC: NEPE 22:50 → INTOOBSV 08-26 01:37 → NEDA 08-26 01:37 → OBSVTOIN 08-26 01:57 → N06 08-26 03:30
PROVIDERS: ADMIT Family Medicine; ATTEND Family Medicine